=== PATIENT | male | born 1950 | race Caucasian/White ===

== ENCOUNTER 2019-03-30 14:26 | Emergency (ER) | payer MEDICARE, SELFPAY ==
[2019-03-30 14:28] VITALS: BP 141/100; PULSE 72; RESP 16; TEMP 37; O2SAT 97; BMI 23.3
--- NOTE | 2019-03-30 14:55 | CT_ITS ---
STUDY: CT ABDOMEN AND PELVIS WITHOUT CONTRAST REASON FOR EXAM: Male, 68 years old. Right lower quadrant pain with nausea and vomiting RADIATION DOSAGE (If Supplied By Facility): CTDIvol = ( 7.96 ) mGy, DLP = ( 361.84 ) mGycm TECHNIQUE: Transaxial images were obtained from the dome of the diaphragm to the symphysis pubis without oral contrast, and without intravenous contrast. Sagittal and coronal images were reconstructed. Individualized dose optimization techniques were used for this CT. COMPARISON: None. FINDINGS: The visualized lung bases are unremarkable. The visualized portions of the heart are within normal limits. Normal liver. Normal gallbladder and extrahepatic biliary system. Normal spleen. Normal pancreas. Normal bilateral adrenal glands. Normal right kidney. Normal left kidney. Normal visualized stomach. Normal small intestine. There is mild fecal retention of the right colon. No colon wall thickening. There are surgical clips in the region of the appendix consistent with a prior appendectomy. Aortobiiliac stent graft is identified with aneurysmal enlargement of the abdominal aorta measuring up to 3.7 cm. No periaortic fluid. Vascular calcifications are present. Normal inferior vena cava. Normal retroperitoneum. Normal urinary bladder. There is enlargement of the prostate gland. Normal abdominal wall. There are diffuse degenerative changes of the visualized lumbar spine. Grade 1 spondylolisthesis of L5-S1 due to bilateral L5 spondylolysis. CT/Abdomen/Pelvis without Cont IMPRESSION: 1. No hydronephrosis or urinary tract calcifications. 2. Abdominal aortic aneurysm with stent graft. No periaortic fluid. 3. Mild fecal retention in the right colon. 4. Appendectomy. Electronically Signed: Gil Manning MD ([facility]) at 15:59 EDT , Service support ,
[2019-03-30 15:09] LABS: Absolute Lymphocyte Count 2.27 X10^3/uL (0.83-4.51); Absolute Neutrophil Count 5.4 X10^3/uL (2.0-7.7); Basophil# 0.09 X10^3/uL; Eosinophils% 2.3 % (0-5); Hematocrit 43.3 % (40-54); Hemoglobin 14.9 g/dL (13.0-16.5); Lymphocyte # 2.27 X10^3/ul (4.0); Lymphocyte % 26.2 % (19-41); Mean Corp Hgb Conc 34.4 g/dL (32-36); Mean Corpuscular Hgb 31.8 pg (27.0-32.0); Mean Corpuscular Volume 92.3 fL (80-94); Mean Platelet Vol. 10.3 fl (6.2-12.0); Monocyte# 0.67 X10^3/uL; Monocyte% 7.7 % (0-10); NRBC Flagged by Analyzer 0 % (0-5); Neutrophil # 5.42 X10^3/uL (2.7-7.7); Neutrophil % 62.6 % (47-70); Platelet Count 242 K/mm3 (150-450); RBC Distribution Width CV 13.1 % (11.6-14.6); RBC Distribution Width SD 43.9 fl (35.1-43.9); Red Blood Count 4.69 M/mm3 (4.6-6.2); White Blood Count 8.7 K/mm3 (4.4-11.0)
--- NOTE | 2019-03-30 15:17 | ED.VIS.GI ---
History of Present Illness Informant: Patient, Significant Other - Abdominal Pain/Flank Pain Onset: Today Context: Gradual Onset Timing: Intermittent Quality: Cramping, Sharp Location: RLQ Current Severity: Mild Maximum Severity: Severe Worsened by: Nothing Relieved by: Nothing - Nausea/Vomiting/Emesis GI Symptom: Nausea, Vomiting Onset: Today Quality: Nonbilious Severity: Severe Episodes: 2 - Diarrhea/Melena/Hematochezia GI Symptom: Diarrhea. Negative for: Melena, Hematochezia Associated Symptoms: Negative for: Dysuria, Frequency, Hematuria, Urgency Narrative: 68-year-old male with right-sided mostly right lower quadrant abdominal pain. He has had 3-4 episodes of sharp stabbing intermittent pain that last with 10 minutes at a time and then resolved, the last 2 with vomiting. He denies any having difficulty urinating. No chest pain. No shortness of breath. No back pain. No lightheadedness or dizziness. No numbness or tingling or weakness of the lower extremities. no melena or hematochezia. No history of kidney stone. He does history of a repaired AAA 7. He is not on anticoagulation. Prior similar symptoms: No Recent Illness/Hospitalization: No <Aston Renteria - Last Filed: 03/30/19 16:43> <MattFerny - Last Filed: 04/02/19 08:00> Chief Complaint: Abd Pain Past Medical History Prior records reviewed: Yes Past Medical History: - - HTN Surgical History: appendectomy, - - AAA repair Lives: With Family Smoking Status: Current every day smoker <Aston Renteria - Last Filed: 03/30/19 16:43> <MattFerny - Last Filed: 04/02/19 08:00> - Allergies and Home Meds Allergies/Adverse Reactions: Allergies venom-honey bee [bee venom (honey bee)] Allergy (Verified 03/30/19 14:31) Anaphylaxis Primary Care Physician: Kavin Alaniz [Primary Care Provider] - Review of Systems All systems negative except as indicated Gastrointestinal: Reports: Abdominal pain, Nausea, Vomiting, Diarrhea <Aston Renteria - Last Filed: 03/30/19 16:43> General: Denies: Chills, Fever, Subjective Eyes: Denies: Visual changes - bilaterally, Blurred Vision - bilaterally ENT: Denies: Right ear pain, Rhinorrhea Cardiovascular: Denies: Chest pain, Palpitations Respiratory: Denies: Dyspnea, Cough, Dyspnea on exertion Genitourinary: Denies: Dysuria, Hematuria, Frequency Musculoskeletal: Denies: Myalgias, Arthralgias, Neck pain, Back pain, Swelling, Extremity Pain Skin: Denies: Rash, Wounds Neurological: Denies: Weakness, Parasthesia Endocrine: Denies: Polyuria, Polydipsia Allergy: Denies: Uticaria, Swelling of the mouth, Swelling of the tongue <MattFerny - Last Filed: 04/02/19 08:00> Physical Exam Vital Signs/Narrative: Vital Signs Temp Pulse Resp BP Pulse Ox 03/30/19 14:28 98.6 F 72 16 141/100 H 97 Inital Vital Signs reviewed: Yes General: Well nourished, Well developed Head: Normocephalic, Atraumatic Eyes: Perrl, EOMI ENT: Moist mucous membranes Neck: Supple, Nontender Cardiovascular: Regular rate, Regular rhythm, No murmurs Respiratory: No distress, CTA bilaterally, Chest nontender Abdomen: Soft, Nontender, Nondistended, Normal bowel sounds, No masses Back: Nontender, Normal Inspection Extremities: Nontender, No edema Skin: Normal color, No rash Neurological: Alert, Oriented x3 <Aston Renteria - Last Filed: 03/30/19 16:43> Skin: No Trauma. Negative for: Cyanosis, Diaphoresis, Jaundice Neurological: Negative for: Cranial nerves II-XII grossly intact, Normal Strength, Normal Sensation, Normal DTR Psychological: Negative for: Normal affect, Normal Mood <Tita Gutierrezo - Last Filed: 04/02/19 08:00> Diagnostic/Tx/Re-eval - Medical Decision Making Patient declined analgesia during the paramedics. Laboratory work-up was unremarkable as was his urinalysis. CT scan showed no acute findings. Patient had no more episodes of pain or vomiting throughout his stay in the emergency department. Please he is tolerating by mouth. Repeat abdominal exam soft and nontender. Discussed with patient that he will be discharged and he was advised to follow-up with his primary care physician. Return precautions to the emergency department were reviewed. Is agreeable with our plan of care. <Aston Renteria - Last Filed: 03/30/19 16:43> - Medical Decision Making Patient presents with intermittent right lower quadrant abdominal pain. He denies flank pain. He denies dysuria, frequency, urgency or hematuria. He denies intolerance of food. He denies anorexia. He denies prior episode of intermittent colicky pain. Vital signs are noted. He appears slightly uncomfortable. HEENT exam is unremarkable her lungs are clear to auscultation. Heart is regular. Abdomen is soft with minimal tenderness at the right lower quadrant to deep palpation. There is no evidence of trauma. There is no CVA tenderness. There is no inguinal lymphadenopathy. Is no evidence of hernia. With intermittent pain one needs to consider ureterolithiasis, abdominal pain of unknown etiology, doubt appendicitis, doubt torsion. Work-up was unremarkable. Since CT of the abdomen was negative he was discharged home with appropriate home-going instructions. <Ferny Gutierrez - Last Filed: 04/02/19 08:00> ED Disposition <Aston Renteria - Last Filed: 03/30/19 16:43> <Ferny Gutierrez - Last Filed: 04/02/19 08:00> - Plan for ED Patient: Disposition: Home or Assisted Living Diagnosis: Flank pain Instructions: ABDOMINAL PAIN, Unkown Cause, (Male) Referrals: Kavin Alaniz [Primary Care Provider] -
[2019-03-30 15:20] LABS: Bacteria 0 SEEN /hpf (None Seen)
[2019-03-30 15:23] LABS: Anion Gap 5 (5-15); BUN 16 mg/dL (7-18); BUN/Creat Ratio 14.8 RATIO (10-20); Calcium,Total 8.5 mg/dL (8.5-10.1); Chloride 105 mmol/L (98-107); Creatinine, Serum 1.08 mg/dL (0.70-1.30); EST Glomerular Filtration Rate 72 mL/min (>60); Est Glom Filt Rate - Afr Amer 87 mL/min (>60); Estimated Creatinine Clearance 65.46 ml/min; Glucose 117 mg/dL (74-106); Sodium Level 138 mmol/L (136-145)
[2019-03-30 15:34] LABS: Color, Urine Yellow (Yellow); Glucose, Dipstick Normal (Normal); Ketone-Dipstick 5 mg/dl (Negative); Leukocyte Esterase-Dipstick 25 /ul (Negative); Nitrite-Dipstick Negative (Negative); Occult Blood-Urine 10 /ul (Negative); Protein-Dipstick 15 mg/dl (Negative); Specific Gravity, Urine 1.025 (1.002-1.030); Urine Bilirubin Dipstick Negative (Negative); Urine Clarity Sl. Cloudy (Clear); Urine Urobilinogen 1 mg/dl (Normal)
[2019-03-30 15:41] LABS: Mucous, Urine 2+ /hpf (<or=2+); Red Blood Cells-Urine 0-5 SEEN /hpf (0-5); Squamous Epithelial Cells - UA 0-5 SEEN /hpf (0-5); White Blood Cells 0-5 SEEN /hpf (0-5)
[2019-03-30 15:50] VITALS: BP 126/70; PULSE 58; RESP 16; TEMP 36.6; O2SAT 98
[2019-03-30 17:21] VITALS: BP 133/71; PULSE 54; RESP 16; O2SAT 99
== END 2019-03-30 17:22 | disposition home or self-care (01) ==
PROVIDERS: Emergency Provider Physician Assistant Medical; Family Provider Family Medicine; PCP Family Medicine
DX: R10.31 Right lower quadrant pain (principal); I71.4 Abdominal aortic aneurysm, without rupture; F17.200 Nicotine dependence, unspecified, uncomplicated
CPT/HCPCS: 74176; 80048; 81001; 85025; 99283; A4216

== ENCOUNTER 2019-06-20 09:14 | Emergency (ER) | payer MEDICARE, SELFPAY ==
[2019-06-20 09:14] VITALS: BP 144/75; PULSE 81; RESP 18; TEMP 36.4; O2SAT 95; BMI 23.0
--- NOTE | 2019-06-20 09:21 | ED.VIS.GEN ---
History of Present Illness Chief Complaint: Upper Extremity Injury Detail of Chief Complaint: Left wrist injury Informant: Patient Onset: Days - 3 days ago Current Severity: Mild Maximum Severity: Moderate Narrative: Patient presents with left wrist injury that occurred 3 days ago. He was running a log splitter with a hydraulic control. He states his left hand was running the control when it suddenly pushed forward and hit his wrist. He has had pain since that time but yesterday noted it started to swell as well. He is right-hand dominant. He denies any pain at the elbow or shoulder. He has been taking ibuprofen for pain. - Past Medical History (1) High cholesterol Status: Chronic (2) BPH (benign prostatic hyperplasia) Status: Chronic Past Medical History - Allergies and Home Meds Allergies/Adverse Reactions: Allergies venom-honey bee [bee venom (honey bee)] Allergy (Verified 06/20/19 09:40) Anaphylaxis Primary Care Physician: Kavin Alaniz [Primary Care Provider] - Prior records reviewed: Yes Surgical History: appendectomy, - - AAA repair Lives: Spouse/ Significant Other Smoking Status: Current every day smoker Review of Systems General: Denies: Chills, Fever Eyes: Denies: Visual changes - bilaterally ENT: Denies: Bilateral ear pain Cardiovascular: Denies: Chest pain Respiratory: Denies: Dyspnea, Cough Gastrointestinal: Denies: Abdominal pain Musculoskeletal: Reports: Swelling, Extremity Pain Skin: Denies: Rash Neurological: Denies: Parasthesia, Numbness Hematologic: Denies: Easy bruising Allergy: Denies: Uticaria Physical Exam Vital Signs/Narrative: Vital Signs Temp Pulse Resp BP Pulse Ox 06/20/19 09:14 97.6 F L 81 18 144/75 H 95 Inital Vital Signs reviewed: Yes General: Well nourished, Well developed ENT: Moist mucous membranes Neck: Supple Cardiovascular: Regular rate, Regular rhythm Respiratory: No distress Abdomen: Soft, Nontender Extremities: - - Tenderness over the dorsal aspect of the left wrist with mild edema. No significant erythema or warmth. He is able to make a fist. There is no tenderness of the elbow or shoulder. Full range of motion is noted. Neurological: Alert, Oriented x3, Normal Sensation Psychological: Normal affect Diagnostic/Tx/Re-eval Impressions Wrist X-Ray 06/20/19 09:45 IMPRESSION: Soft tissue swelling. Electronically Signed: Moshe Dee, at 10:06 EST , Service support , 06/20/19 09:45 Wrist min 3 Views [RAD] Stat - Medical Decision Making X-ray results are discussed with patient and at bedside. I believe he is likely developing tendinitis in his left wrist. He will be given a Velcro wrist splint and given a 4-day course of steroids. ED Disposition - Plan for ED Patient: Disposition: Home or Assisted Living Diagnosis: Tendinitis of left wrist Instructions: Wrist Sprain Prescriptions: Prednisone [Deltasone] 40 mg PO DAILY #8 tablet Referrals: Kavin Alaniz [Primary Care Provider] - 1 Week if not improving
--- NOTE | 2019-06-20 09:45 | RAD_ITS ---
STUDY: X-RAY - LEFT WRIST REASON FOR EXAM: Male, 68 years old. Pain following recent injury. TECHNIQUE: 3 view(s) of the wrist were obtained. COMPARISON: None. FINDINGS: Normal visualized distal radius and ulna. Normal radiocarpal articulation. Normal distal radioulnar articulation. Normal carpal bones. Normal carpal articulations. Normal carpometacarpal articulation of the thumb. Normal second through fifth carpometacarpal articulations. Normal visualized metacarpal bones. Soft tissue swelling. RAD/Wrist min 3 Views IMPRESSION: Soft tissue swelling. Electronically Signed: Moshe Dee, at 10:06 EST , Service support ,
[2019-06-20] MEDS: predniSONE 20 MG Tablet 40 MG PO (10:31)
[2019-06-20 10:40] VITALS: BP 138/79; PULSE 82; RESP 16; O2SAT 99
== END 2019-06-20 10:41 | disposition home or self-care (01) ==
PROVIDERS: Emergency Provider Emergency Medicine; Family Provider Family Medicine; PCP Family Medicine
DX: M77.9 Enthesopathy, unspecified (principal); E78.00 Pure hypercholesterolemia, unspecified; N40.0 Benign prostatic hyperplasia without lower urinary tract symptoms; Z79.899 Other long term (current) drug therapy; F17.200 Nicotine dependence, unspecified, uncomplicated
CPT/HCPCS: 73110; 99283

== ENCOUNTER 2024-03-20 09:51 | Emergency (ER) | payer MEDICARE, SELFPAY ==
[2024-03-20 09:52] VITALS: BP 136/80; PULSE 64; RESP 18; TEMP 35.8; O2SAT 97; BMI 25.8
--- NOTE | 2024-03-20 10:30 | RAD_ITS ---
INDICATION: atraumatic pain EXAMINATION/TECHNIQUE: X-RAY - XR Spine Lumbar 2 or 3 Views COMPARISON: No relevant prior comparison study available FINDINGS: VERTEBRAE: Preserved vertebral body height. No fracture. Grade 1 anterolisthesis of L5 over S1. Preservation of the normal lumbar lordosis. Mild dextroscoliosis. DISCS: Narrowing of L5-S1 disc space. Endplate spondylosis. Facet arthropathy of the lower lumbar spine. INCLUDED ABDOMEN: Endoluminal aortic stent graft extending to the common iliac arteries bilaterally. RAD/Lumbar Spine 2 or 3 Views IMPRESSION: Degenerative changes of the lumbar spine as described above. Electronically Signed: Dmitriy Garcia MD at 11:02 EDT ,
--- NOTE | 2024-03-20 11:08 | EDS_ITS ---
HPI History of Present Illness Chief Complaint: Back Informant: patient and spouse/S.O. Onset/Context/Timing Onset: Days Context: Gradual Onset Injury: bending and repetitive motion Timing: Continuous Quality: Dull and Aching Location: Lumbar Current Severity: Mild Maximum Severity: Moderate Worsened by: improves with Movement Relieved by: Remaining Still Associated Symptoms Associated Symptoms: Negative for Numbness, Tingling, Radiation to Right Leg, Radiation to Left Leg, Fever, Abdominal Pain, Dysuria, Unable to Ambulate, Unable to Transfer, Urinary Retention, Urinary Incontinence, Constipation or Fecal Incontinence Narrative Narrative: 73 year-old male history of AAA with stents. Was painting his porch and developed low back pain. No radiation to his legs. No bowel or bladder incontinence or retention. No numbness or weakness to his legs. No prior back history or surgery. No fall or trauma. No fever. Prior similar symptoms: No Recent Illness/Hospitalization: No [facility] Medical History History of poliomyelitis Hx of abdominal aortic aneurysm COPD (chronic obstructive pulmonary disease) Home Medications ?Medication ?Instructions ?Recorded ?Last Taken ?Type tamsulosin 0.4 mg capsule 0.4 mg PO DAILY 10/15/14 Unknown History epinephrine 0.3 mg/0.3 mL 0.3 mg (0.3 mL) IM X1 ##2 03/01/16 Unknown Rx injection, auto-injector simvastatin 10 mg tablet 10 mg PO QHS 03/30/19 Unknown History prednisone 20 mg tablet 40 mg (2 x 20 mg) PO DAILY #8 tabs 06/20/19 Unknown Rx Allergy/AdvReac Type Severity Reaction Status Date / Time venom-honey bee (bee venom Allergy Anaphylaxis Verified 03/20/24 09:52 (honey bee)) Surgical History Hx of shoulder surgery Hx of appendectomy Hx of abdominal surgery H/O endovascular stent graft for abdominal aortic aneurysm Social History Smoking Status: Heavy Smoker (>10/day) ROS ROS ED ROS Narrative Denies any recent weakness. Denies any recent illness. Denies any bowel or bladder incontinence. Review of Systems ROS Unobtainable: Denies due to encephalopathy Constitutional Constitutional ED: Denies chills or fever(s) Eyes Eyes: Denies blurry vision ENT ENT ED: Denies ear pain Cardiovascular Cardiovascular: Denies chest pain Respiratory/Chest Respiratory/Chest: Denies dyspnea Gastrointestinal Gastrointestinal: Denies abdominal pain Genitourinary Genitourinary ED: Denies dysuria or hematuria Musculoskeletal Musculoskeletal: Reports back pain; Denies arthralgias, myalgias or neck pain Integumentary Denies abscess or Abrasions Neurologic Neurologic: Denies headache(s) Psychiatric Psychiatric: Denies anxiety Endocrine Endocrinology: Denies cold intolerance Hematologic/Lymphatic Hematologic/Lymphatic: Denies easy bleeding or easy bruising Allergic/Immunologic Allergic/Immunologic ED: Denies mouth swelling, tongue swelling or urticaria EXAM Physical Exam Narrative Exam Narrative: Well-appearing 73-year-old male sitting upright in bed. Vital signs are stable and afebrile. H EENT exam unremarkable. Lungs clear. Heart regular rhythm no murmur rate about 65. Chest wall ribs nontender. Abdomen soft nontender. No pulsatile mass. Moving all 4 extremities. Neurovascularly intact. No cauda equina. Normal dorsi and plantarflexion of both lower extremities. Normal medial thigh sensation. No cauda equina. No saddle anesthesia. Able to lift either leg off the bed. No radiculopathy. Back no reproducible pain over the spine or paralumbar soft tissue. No signs of trauma. No redness or warmth. No bruising. Neurologically is awake alert answering questions following commands. Good motor strength and sensation in both upper and lower extremities. Const Vital Signs: 03/20/24 09:52 Temperature 96.5 F L Temperature Source Temporal Pulse Rate 64 Respiratory Rate 18 Blood Pressure 136/80 H Blood Pressure Mean 98 Pulse Ox 97 Oxygen Delivery Method Room Air Positive well nourished and well developed; Negative for obese, cachectic, contractures or unkempt General Appearance ED: well developed and NAD; Negative for unkempt, cachectic, contractures or pallor Nutritional Appearance: Negative for cachectic or obese HEENT Reports moist mucous membranes Negative for trauma or tenderness Eyes PERRL and EOMs intact bilaterally General Eye ED: Negative for pale conjunctiva or scleral icterus Neck no lymphadenopathy, supple and no JVD General: Negative for tenderness Thyroid: Negative for other Resp normal respiratory effort and clear to auscultation bilaterally Effort and Inspection: Negative for pain with movement Auscultation: Negative for rales, rhonchi, wheezes or diminished lung sounds Cardio regular rate, regular rhythm, S1 normal heart sound, S2 normal heart sound and no murmurs Rhythm: Negative for abnormal rhythm GI normal to inspection, nondistended, normoactive bowel sounds, soft to palpation, non-tender, non-distended and no masses Inspection: Negative for abdominal distention Palpation: Negative for tender, guarding or rebound tenderness present Back/Spine normal to inspection and no thoracic nor lumbar tenderness Back/Spine Narrative: Nontender back. Normal inspection. General Back: Negative for CVA tenderness Cervical Spine: Negative for cervical spine tenderness Thoracic Spine / Upper Back: Negative for paraspinal muscle tenderness Extremity normal to inspection General Extremety ED: Negative for edema or tenderness General Extremity: Negative for edema Neuro oriented x3 and no sensory deficits noted Sensorium / Orientation: Negative for alert, confused, lethargic or stuporous Motor Exam: strength 5/5 throughout; Negative for strength abnormal Psych mental status grossly normal Appearance: Negative for unkempt Attitude: No agitated Mood & Affect: Negative for depressed Skin no rashes or lesions noted and no wounds General Skin Exam: Negative for jaundice or pallor Lesions: No lesion noted Rashes: No rashes noted Trauma: Negative for abrasion or puncture Wounds: Negative for wounds noted MDM MDM MDM Narrative Medical decision making narrative: 73-year-old male low back pain while painting his warts. No fall injury or trauma. Normal exam. Normal strength and sensation. No cauda equina. Plain x-rays were obtained showed degenerative arthritis between L5 and S1. He currently does not need an MRI is good strength and sensation. I went over the x-ray results with he and his . Repeat exam at 11:05 AM was unchanged. He still has good strength and sensation. He will continue his Aleve at home and Tylenol. Follow-up with his doctor or online marketing specialist if not improving or worse. Return if he develops any radiculopathy or or bowel or bladder incontinence or retention. History & Record Review Discussion w/independent historian: Patient and Family Additional record(s) reviewed:: Prior inpatient record, Prior outpatient record and Prior ED visit Radiography Diagnostic Testing: Clinical Impression(s) from Imaging Studies Lumbar Spine X-Ray 03/20/24 10:30 IMPRESSION: Degenerative changes of the lumbar spine as described above. Electronically Signed: Dmitriy Garcia MD at 11:02 EDT , LS-spine x-ray, 3 views, interpreted by myself the radiologist shows degenerative joint disease between L5 and S1. No compression fractures. Good disc space and the other lumbar vertebrae. Discharge Plan Triage Chief Complaint: Back ED Provider: Gee Taylor Dx/Rx/DC Orders Clinical Impression: Back pain Instructions: ED Back Pain (Acute or Chronic) Prescriptions: No Action tamsulosin 0.4 MG capsule 0.4 mg PO DAILY epinephrine 0.3 MG syringe 0.3 mg IM X1 Qty: 2 0RF simvastatin 10 MG tablet 10 mg PO QHS prednisone 20 MG tablet 40 mg PO DAILY Qty: 8 0RF Rx Instructions: With food Primary Care Provider: Kavin Alaniz Referrals: Ryan Tejeda DO [Non-Staff] - 1 Week if not improving Connor Jim DO [Med Staff - Active Staff] - 10-14 Days if not better Kavin Alaniz DO [Primary Care Provider] - Activity Restrictions/Additional Instructions: You have degenerative arthritis in your lower back between L5 and S1. Ice to your back. Aleve for pain and inflammation. Tylenol for pain. Follow-up if not improving or getting worse. Print Language: Spanish Disposition Disposition: Home, Self Care
[2024-03-20 11:18] VITALS: BP 137/81; PULSE 55; RESP 18; TEMP 36.7; O2SAT 95
== END 2024-03-20 11:19 | disposition home or self-care (01) ==
PROVIDERS: Emergency Provider Emergency Medicine; PCP Family Medicine; Visit Provider Emergency Medicine
DX: M54.50 Low back pain, unspecified (principal); J44.9 Chronic obstructive pulmonary disease, unspecified; F17.200 Nicotine dependence, unspecified, uncomplicated
CPT/HCPCS: 72100; 99282

== ENCOUNTER → 2025-03-24 | Outpatient (CLI) | payer MEDICARE, SELFPAY ==
--- NOTE | 2025-03-24 14:07 | PCM.PR.HP ---
History of Present Illness General Arrival date:: 03/24/25 Arrival time:: 14:07 Date of Referral:: 03/12/25 Date of Evaluation: 03/24/25 Referring Physician: Dr. Bashir Escobedo Primary Diagnosis: emphysema, chronic bronchitis History of Present Pulmonary Event [facility] Breathless Scale: When is the patient short of breath? Y/N Grade: Description of Breathlessness: 0 I only get breathless with strenuous exercise. 1 I get short of breath when hurrying on level ground or walking up a slight hill. 2 On level ground, I walk slower than people of the same age because of breathless, or have to stop for breath when walking at my own pace. 3 I stop for breath after walking 100 yards or after a few minutes on level ground. 4 I am too breathless to leave the house or I am breathless when dressing. Respiratory Problems: Yes Chest Pain, Fatigue, Wheezing, Able to Speak in Full Sentences, Dyspnea with Activity and Cough with Secretions; No Retain Secretions, Limited Range of Motion, Dizziness, Ankle Swelling, Hoarseness, Anxiety, Panic, Dyspnea at Rest or Dyspnea Lying Down Flat Medications Home Medications tamsulosin 0.4 mg capsule 0.4 mg PO DAILY 10/15/14 epinephrine 0.3 mg/0.3 mL injection, auto-injector 0.3 mg (0.3 mL) IM X1 ##2 03/01/16 simvastatin 10 mg tablet 10 mg PO QHS 03/30/19 prednisone 20 mg tablet 40 mg (2 x 20 mg) PO DAILY #8 tabs 06/20/19 Allergies Allergies venom-honey bee (bee venom (honey bee)) Allergy (Verified 03/20/24 09:52) Anaphylaxis Secretions Thick:: Yes Amount/Day:: 1 TSP (or less) PM: Yes Sleep Disorder Evaluation Hx of Sleep Apnea: No Do you snore loudly (louder than talking or can be heard through closed doors)?: No Do you often feel tired/ fatigued/ sleepy during daytime?: No Has anyone observed you stop breathing during sleep?: No History of Hypertension (for STOP score): No STOP Results: Negative Medical Utilization Medical Devices Do you use a peak flow meter at home?: No Do you use a spacer device with your inhalers?: Yes Medical Utilization Number of hospital visits in the last year?: 0 Number of emergency room visits in the last year?: 0 Do you see your physician on a regular schedule?: Yes How often?: every 2 months Advanced Directives Advanced Directives Do you have a Healthcare Power of Phlebotomy Technician?: Yes Living Will: Yes Advance Directives Information Provided: Yes Advance Directives on File: No DNR Order?:: No Past Medical History Covid-19 Screening Physicial Symptoms Other Clinical Concerns Exposure Risk Pertinent Comorbidities 65 years or older:: Yes Has a chronic lung disease or moderate to severe asthma:: Yes Medical History Medical History History of poliomyelitis Hx of abdominal aortic aneurysm COPD (chronic obstructive pulmonary disease) Surgical History Surgical History Hx of shoulder surgery Hx of appendectomy Hx of abdominal surgery H/O endovascular stent graft for abdominal aortic aneurysm Social History Smoking History Smoking Status: Former smoker Years Smokin Packs Smoked per Day: 1 (stopped 5 months ago) Alcohol Use Alcohol Usage: No Substance Abuse Hx Substance Use: No Occupation Occupation (List type of work in comments):: Retired Functioning ADL/IADL Current Ability Current Ability: Independent: Self-Care (e.g.,grooming, dressing, & bathing), Independent: Ambulation, Independent: Transfer and Independent: Household tasks (e.g., light meal prep, laundry, shopping) Pt Functioning Prior to Problem Prior Functioning: Self-Care (e.g.,grooming, dressing, & bathing): Independent, Ambulation: Independent, Transfer: Independent and Household tasks (e.g., light meal prep, laundry, shopping): Independent Social Environment Status Marital Status: Current Living Arrangements Living Environment:: Spouse Children How many children do you have?: 6 Do any of your children live nearby?: No Safety Do you feel safe in your surroundings?: Yes Assistance Do you need any assistance at home?: no Review of Systems Review of Systems Review of Systems Respiratory: Reports Appetite, Normal and Fatigue; Denies Cough, Hemoptysis, Pleuritic Pain, SOB at Rest, SOB upon Exertion, Sputum production, Wheezing, Dizziness/Lightheadedness, PVD, Sexual changes or Sleep, Normal Pain Is Patient Pain Free?: Yes Risk Factor Assessment Chief Complaint Chief Complaint: emphysema, chronic bronchitis Vital Signs Pulse Rate: 67 Pulse Rhythm: Regular Pulse Ox: 95 Blood Pressure: 150/64 Obesity Height: 5 ft 10 in Weight:: 163 lb Weight in Pounds: 163.0 lbs Body Mass Index (BMI): 23.3 Nutritional Referral for Obesity: No Physical Activity Physical Inactivity: None Risk Stratification Risk Guidelines: Moderate Risk: Risk Factor for Smoking, Risk Factor for Diabetes, Risk Factor for Obesity, Risk Factor for Hypertension, Risk Factor for Sedentary Lifestyle and Risk Factor for Depression and Highest Risk: Risk Factor for Dyslipidemia For Smoking Smoking Risk Guidelines For Dyslipidemia Dyslipidemia Risk Guidelines For Diabetes Mellitus Diabetes Risk Guidelines For Obesity/Overweight Obesity/Overweight Risk Guidelines For Hypertension Hypertension Risk Guidelines For Sedentary Lifestyle Sedentary Lifestyle Risk Guidelines For Depression Depression Risk Guidelines Motivation Motivation to Participate On a scale of 1 to 10, how prepared are you to commit to attending program?: 9 What do you see as barriers to successfully being able to complete the program?: nothing Are there issues you are dealing with that will interfere with completing the program?: no Do you have a spouse or signficant other, family or friends who will help support you to complete the program?: yes Diagnostic Data Review 6 Minute Walk Test 6 Minute Walk Test: Walked 1070 ft at a speed of 2 mph and a MET level of 2.5 Pulmonary Function Test FEV1:: 50 FVC:: 101 FEV1/FVC%:: 50
--- NOTE | 2025-03-24 14:16 | PR.ITP_ITS ---
General Information2 General Information Admitting Diagnosis: emphysema Secondary Diagnosis: chronic bronchitis PFT FEV1:: 50 FVC:: 101 FEV1/FVC%:: 50 (Walked 1070 ft at a speed of 2 mph and a MET level of 2.5) Personal Learning Style/Barriers Personal Learning Style:: Audio/Visual Barriers to Learning: None Stage of change r/t lifestyle modifications: Contemplation Education/Goals [place] Patient Goals: Increase muscle strength: Initial Assessment, Experience less dyspnea: Initial Assessment, Improve energy level: Initial Assessment, Participate in home exercise: Initial Assessment, Improve the ability to cope with ADLs: Initial Assessment, Improve knowledge of lung disease: Initial Assessment and Improve my quality of life: Initial Assessment Exercise - Initial Assessment Visit Date of Eval: 03/24/25 (initial eval) Problem/Goals Problems: Deconditioning Goals:: Aerobic exercise 30-60 mins x 12 weeks [36 sessions] Functional Capacity Test Number of feet walked: 1,070 Lowest SPO2 %: 90 Physician Prescribed Exercise Modalities: Treadmill, Rower, Schwinn Airdyne AD-7, UrvewFit Stepper, Inside Secure Pro- II Ergometer and Inside Secure Lateral Client Application Support Engineer Frequency (days/week): 3 Duration (Minutes):: 30-45 Intensity: 60-80% of age predicted maximum heart rate reserve Current METSs:: 2.5 Target HR:: 110 (88-110) Resting Blood Pressure: 150/64 Plan Plan and Plan to Review:: Benefits of exercise, Core components of exercise, How to measure dyspnea level, How to monitor dyspnea level, Exercise intensity, Exercise safety guideline, Home exercise guidelines and Sophie: 3-4/11-13 Nutrition/Wt Mgmt - Initial Visit Date of Eval: 03/24/25 (initial eval ) Weight Management Admit Height:: 5 ft 10 in Admit Weight:: 163 lb Admit BMI:: 23.3 Intervention Referral to dietitian:: No (nutrition survey score of 1.) Will attend diet classes:: Yes Intervention/Plan: Instruct on ideal BMI & set weight loss goal w/patient, Assist pt to ID & incorporate diet changes for weight loss by S9, Refer to Structured Weight Loss program as appropriate, Encourage goal of using 250- 300dcal per session for weight loss and Other additional plan/interventions Plan Nutrition Plan: Yes: Review BMI or WC & identify target wt & strategies for wt control, Yes: Nutrition education class:, Yes: Medication education class [Prednisone]:, Yes: Weight control education class:, Yes: Education re: Need for ongoing weight monitoring, Yes: Food diary: and Yes: Physical activity log: Nutrition/Wt Mgmt - 30-Day Weight Management Height: 5 ft 10 in Weight:: 163 lb BMI: 23.3 Nutrition/Wt Mgmt - 60-Day Weight Management Height: 5 ft 10 in Weight:: 163 lb BMI: 23.3 Nutrition/Wt Mgmt - 90-Day Weight Management Height: 5 ft 10 in Weight:: 163 lb BMI: 23.3 Nutrition/Wt Mgmt - Final Weight Management Height: 5 ft 10 in Weight:: 163 lb BMI: 23.3 Psychosocial - Initial Assess Visit Date of Eval: 03/24/25 (initial eval ) Problems/Goals History of Emotional Disorders: None Psychosocial Goals: 1. Patient is free from overwhelming symtoms of depression (or anxiety, 2. Identifies personal stressors & states the strategies for managing, 3. Identifies activities to decrease isolation and/or symptoms of, 4. Improved psychosocial coping skills., 5. Verbalizes coping strategies., 6. Adequate treatment of depression. and 7. Improved Q.O.L. Psychosocial Test Tool Used:: PHQ-9 Questionnaire PHQ-9 Score: 6 Referred to MD for counseling:: No Referral to Behavioral Health PS - Interventions: Yes: Attend Stress Management Classes Intervention/Plan: See List Interventions/Plan:: Assess stressors,coping strategies & signs of derpression on admission, Instruct/assist pt to develop coping & personal stress Mgt strategies, Refer to Behavioral Health if appropriate, Refer to Physician if appropriate, Instruct patient to recognize signs & symptoms of depression and Instruct patient to recog Psychosocial - 30-Day Problems/Goals History of Emotional Disorders: None Psychosocial Goals: 1. Patient is free from overwhelming symtoms of depression (or anxiety, 2. Identifies personal stressors & states the strategies for managing, 3. Identifies activities to decrease isolation and/or symptoms of, 4. Improved psychosocial coping skills., 5. Verbalizes coping strategies., 6. Adequate treatment of depression. and 7. Improved Q.O.L. Psychosocial Test Tool Used:: PHQ-9 Questionnaire PHQ-9 Score: 6 Referred to MD for counseling:: No Referral to Behavioral Health PS - Interventions: Yes: Attend Stress Management Classes Plan Interventions/Plan:: Assess stressors,coping strategies & signs of derpression on admission, Instruct/assist pt to develop coping & personal stress Mgt strategies, Refer to Behavioral Health if appropriate, Refer to Physician if appropriate, Instruct patient to recognize signs & symptoms of depression and Instruct patient to recog Psychosocial - 60-Day Problems/Goals History of Emotional Disorders: None Psychosocial Goals: 1. Patient is free from overwhelming symtoms of depression (or anxiety, 2. Identifies personal stressors & states the strategies for managing, 3. Identifies activities to decrease isolation and/or symptoms of, 4. Improved psychosocial coping skills., 5. Verbalizes coping strategies., 6. Adequate treatment of depression. and 7. Improved Q.O.L. Psychosocial Test Tool Used:: PHQ-9 Questionnaire PHQ-9 Score: 6 Referred to MD for counseling:: No Referral to Behavioral Health PS - Interventions: Yes: Attend Stress Management Classes Plan Interventions/Plan:: Assess stressors,coping strategies & signs of derpression on admission, Instruct/assist pt to develop coping & personal stress Mgt strategies, Refer to Behavioral Health if appropriate, Refer to Physician if appropriate, Instruct patient to recognize signs & symptoms of depression and Instruct patient to recog Psychosocial - 90-Day Problems/Goals History of Emotional Disorders: None Psychosocial Goals: 1. Patient is free from overwhelming symtoms of depression (or anxiety, 2. Identifies personal stressors & states the strategies for managing, 3. Identifies activities to decrease isolation and/or symptoms of, 4. Improved psychosocial coping skills., 5. Verbalizes coping strategies., 6. Adequate treatment of depression. and 7. Improved Q.O.L. Psychosocial Test Tool Used:: PHQ-9 Questionnaire PHQ-9 Score: 6 Referred to MD for counseling:: No Referral to Behavioral Health PS - Interventions: Yes: Attend Stress Management Classes Plan Interventions/Plan:: Assess stressors,coping strategies & signs of derpression on admission, Instruct/assist pt to develop coping & personal stress Mgt st rategies, Refer to Behavioral Health if appropriate, Refer to Physician if appropriate, Instruct patient to recognize signs & symptoms of depression and Instruct patient to recog Psychosocial - Final Assess Problems/Goals History of Emotional Disorders: None Psychosocial Goals: 1. Patient is free from overwhelming symtoms of depression (or anxiety, 2. Identifies personal stressors & states the strategies for managing, 3. Identifies activities to decrease isolation and/or symptoms of, 4. Improved psychosocial coping skills., 5. Verbalizes coping strategies., 6. Adequate treatment of depression. and 7. Improved Q.O.L. Psychosocial Test Tool Used:: PHQ-9 Questionnaire PHQ-9 Score: 6 Referred to MD for counseling:: No Referral to Behavioral Health PS - Interventions: Yes: Attend Stress Management Classes Plan Interventions/Plan:: Assess stressors,coping strategies & signs of derpression on admission, Instruct/assist pt to develop coping & personal stress Mgt strategies, Refer to Behavioral Health if appropriate, Refer to Physician if appropriate, Instruct patient to recognize signs & symptoms of depression and Instruct patient to recog Oxygen & Oxygen Titration Init Visit Date of Eval: 03/24/25 (initial eval ) Initial Assessment Oxygen on Admission: None Patient Reports:: No cough Plans Plan: Recommend appropriate FiO2 to Pt/MD Reviewed prescribed medications:: Purpose, Schedule, Side effects and Importance of compliance Instruct correct technique/timing & care:: MDI, DPI and Return demo use of inhaler Bronchial Hygiene Plan: Controlled cough, CPT, Vibratory PEP device, VEST, Role of exercise in secretion clearance, NS Nasal spray, Hydration, Hand hygiene, Evaluate sputum, When to call MD, Signs/symptoms to report:, Influenza/Pneumovax vaccines and Cleaning of respiratory equipment Core Components - Initial Visit Date of Eval: 03/24/25 (initial eval ) Hypertension BP: 150/64 Citizen Of [place] [employer] Hypertension Guidelines Outcomes/Goals: Able to verbalize/achieve optimal blood pressure <130/80 and Incorporates diet changes & exercise for blood pressure control by DC Tobacco - Initial Assessment Tobacco Program Goals Stages of Change:: Maintenance (pt stopped smoking 5 months ago) Learning Barriers: Ready to Learn Tobacco Use: Non-smoker How long ago did you quit using tobacco products?: Less than 6 months ago How many cigarettes do you smoke per day?: 20 Years Smokin Do you use smokeless tobacco?: No Smoking Cessation Referral:: No Individual Education/Counseling:: No Education Schedule Given:: Yes Gave Education Materials For:: Tobacco Triggers, Pulmonary Disease, Risk Factors, Breathing Techniques, Medical Compliance, Pulmonary A&P, Exacerbation Signs & Symptoms and Stress & Relaxation Exacerbation Mgmt & Airway Clearance Patient Reports:: No cough Plan: Recommend appropriate FiO2 to Pt/MD Instruct correct technique/timing & care:: MDI, DPI and Return demo use of inhaler Bronchial Hygiene Plan: Controlled cough, CPT, Vibratory PEP device, VEST, Role of exercise in secretion clearance, NS Nasal spray, Hydration, Hand hygiene, Evaluate sputum, When to call MD, Signs/symptoms to report:, Influenza/Pneumovax vaccines and Cleaning of respiratory equipment Medication Interventions/plans: Instruct on medication effects & side effects, Review medication list w/patient every two weeks and Instruct importance of taking meds as ordered & assist problem solving Medication Goals: Adherence to prescribed medications and Correct technique/timing & care of MDI, DPI, nebulizer, and spacer. Medications: Yes: MDI, Yes: DPI and Yes: Spacer Reviewed prescribed medications:: Purpose, Schedule, Side effects and Importance of compliance Diabetes Diabetes:: No Referral to dietitian:: No (nutrition survey score of 1.) Will attend diet classes:: Yes Core Components - 30 DAYS Hypertension Resting Blood Pressure:: 150/64 Citizen Of [place] [employer] Hypertension Guidelines Outcomes/Goals: Able to verbalize/achieve optimal blood pressure <130/80 and Incorporates diet changes & exercise for blood pressure control by DC Tobacco - 30-Day Tobacco Program Goals Stages of Change:: Maintenance (pt stopped smoking 5 months ago) Tobacco Use: Non-smoker How many cigarettes do you smoke per day?: 20 Do you use smokeless tobacco?: No Smoking Cessation Referral:: No Education Schedule Given:: Yes Gave Education Materials For:: Tobacco Triggers, Pulmonary Disease, Risk Factors, Breathing Techniques, Medical Compliance, Pulmonary A&P, Exacerbation Signs & Symptoms and Stress & Relaxation Diabetes Diabetes:: No Core Components - 60 DAYS Hypertension Resting Blood Pressure:: 150/64 Citizen Of [place] [employer] Hypertension Guidelines Outcomes/Goals: Able to verbalize/achieve optimal blood pressure <130/80 and Incorporates diet changes & exercise for blood pressure control by DC Tobacco - 60-Day Tobacco Program Goals Stages of Change:: Maintenance (pt stopped smoking 5 months ago) Tobacco Use: Non-smoker How many cigarettes do you smoke per day?: 20 Do you use smokeless tobacco?: No Smoking Cessation Referral:: No Individual Education/Counseling:: No Education Schedule Given:: Yes Gave Education Materials For:: Tobacco Triggers, Pulmonary Disease, Risk Factors, Breathing Techniques, Medical Compliance, Pulmonary A&P, Exacerbation Signs & Symptoms and Stress & Relaxation Diabetes Diabetes:: No Core Components - 90 DAYS Hypertension Resting Blood Pressure:: 150/64 Citizen Of [place] [employer] Hypertension Guidelines Outcomes/Goals: Able to verbalize/achieve optimal blood pressure <130/80 and Incorporates diet changes & exercise for blood pressure control by [place] Tobacco - 90-Day Tobacco Program Goals Stages of Change:: Maintenance (pt stopped smoking 5 months ago) Tobacco Use: Non-smoker How many cigarettes do you smoke per day?: 20 Do you use smokeless tobacco?: No Smoking Cessation Referral:: No Individual Education/Counseling:: No Education Schedule Given:: Yes Gave Education Materials For:: Tobacco Triggers, Pulmonary Disease, Risk Factors, Breathing Techniques, Medical Compliance, Pulmonary A&P, Exacerbation Signs & Symptoms and Stress & Relaxation Diabetes Diabetes:: No Core Components - Final Hypertension Resting Blood Pressure:: 150/64 Citizen Of [place] [employer] Hypertension Guidelines Outcomes/Goals: Able to verbalize/achieve optimal blood pressure <130/80 and Incorporates diet changes & exercise for blood pressure control by [place] Tobacco - Final Tobacco Program Goals Stages of Change:: Maintenance (pt stopped smoking 5 months ago) Tobacco Use: Non-smoker How many cigarettes do you smoke per day?: 20 Do you use smokeless tobacco?: No Smoking Cessation Referral:: No Individual Education/Counseling:: No Education Schedule Given:: Yes Diabetes Diabetes:: No Patient Health Questionnaire PHQ-9 Screening Initial Assessment: 1. Little interest or pleasure in doing things: Not at all 2. Feeling down, depressed, or hopeless: Not at all 3. Trouble falling or staying asleep, or sleeping too much: Nearly every day 4. Feeling tired or having little energy: Several days 5. Poor appetite or overeating: Not at all 6. Feeling bad about yourself -- or that you are a failure or have let yourself or your family down: Not at all 7. Trouble concentrating on things, such as reading the newspaper or watching television: Several days 8. Moving or speaking so slowly that other people could have noticed. Or the opposite - being so fidgety or restless that you have been moving around a lot more than usual: Several days 9. Thoughts that you would be better off , or of hurting yourself in some way: Not at all How difficult have these problems made it for you to do your work, take care of things at home, or get along with other people?: Somewhat difficult Total Score: 6 Knowledge Questionaire (BCKQ) Information Information: [facility] COPD Knowledge Questionnaire (BCKQ) This questionnaire is designed to find out what you know about your lung problem. It should be completed without help form anyone else. This usually takes between 10 and 20 minutes. Your answers will help us to find out what information you need to help you to understand and manage your lung condition. Brenden the [place] which you think is the correct answer. Questions 1. In COPD: a. In COPD the word chronic means it is severe: True b. COPD can only be confirmed by breathing tests: True c. In COPD ther is usually gradual worsening over time: True d. In COPD oxygen levels in the blood are always low: False e. COPD is usually in people less than 40 years old: False 2. COPD: Immanuel than 80% of COPD cases are caused by cigarette smoking: Don't know b. COPD can be caused by occupational dust exposure: True c. Longstanding asthma can develop into COPD: Don't know d. COPD is commonly an inherited disease: False e. Women are less vunerable to the effects of cigarette than men: True 3. The following symptoms are Common in COPD: a. Swelling of the ankles is common in COPD:: False b. Fatigue [tiredness] is common in COPD: True c. Wheezing is common in COPD: True d. Crushing chest pain is common in COPD: False e. Rapid weight loss is common in COPD: False 4. Breathlessness in COPD: a. Severe breathlessness prevents travel by air: Don't know b. Breathlessness can be worsened by eating large meals: Don't know c. Breathlessness means that your oxygen levels are low: True d. Breathlessness is a normal response to exercise: True e. Breathlessness is primarily caused by a narrowing of the bronchial tubes: False 5. Phlegm (sputum): a. Coughing phlegm is a common symptom in COPD: True b. Clearing phlegm is more difficult if you get dehydrated: Don't know c. Bronchodilator inhalers can help clear phlegm: Don't know d. Phlegm causes harm if swallowed: False e. Clearing phlegm can be assisted by breathing exercises: True 6. Chest infections / exacerbations: a. Chest infections often cause coughing of blood: Don't know b. Chest infection phlegm usually becomes coloured (ylw/grn): True cExerbations (episodes of worsening) can occur in the absence of chest infection: Don't know d. Chest infections are always accompanied by a high temperature: Don't know e. Steroid tablets should be taken whenever there is an exacerbation: Don't know 7. Excercise in COPD: aWalking excercises better than breathing to improve fitness: Don't know b. Exercise should be avoided as it strains the lungs: False c. Exercise can help maintain your bone density: Don't know d. Exercise helps relieve depression: True e. Exercise should be stopped if it makes you breathless: Don't know 8. Smoking: a. Stopping smoking will reduce the risk of heart disease: True b. Stopping smoking will slow down further lung damage: True c. Stopping smoking is pointless as the damage is done: False d.Stopping smoking usually results in improved lung function: True eNicotine replacement therapy only available on prescription: False 9. Vaccination: a. A flu jab is recommended every year: True b. You can get flu from having a flu jab: False c. You can only have a flu jab if you are 65 or over: False d. A pneumonia jab protects against all forms of pneumonia: Don't know e.You can have a pneumonia jab and a flu job on the same day: Don't know 10. Inhaled bronchodilators: a. Bronchodilators act quickly (within 10 minutes): Don't know b. Both short & long acting bronchodilators can be taken on the same day: Don't know c. Spacers (volumatic,nebuhaler,serochamber)should be dried w/atowel after washing: Don't know d. A spacer device increases the medication to the lungs: Don't know e. Tremor may be a side effect of bronchodilators: Don't know 11. Antibiotic treatment in COPD: a. To be effective, the course should last at least 10 days: Don't know b. Excessive use of antibiotics can cause resistant bacteria (germs): Don't know c. Antibiotics will clear all chest infections: Don't know d. Antibiotic treatment is necessary for an exacerbation (worsening) however mild: True e. Seek advice if antibiotics cause severe diarrhoea: True 12. Steroid tablets given for COPD (eg Prednisolone): a. Steroid tablets help strengthen muscles: Don't know b. Steroid tablets should be avoided if there is a chest infection: Don't know c. The risk of long-term side effects due to steroids is less w/short courses then w/continous treatment: True dIndigestion is common side effect from using steroid tablet: Don't know e. Steroid tablets can increase your appetite: Don't know 13. Inhaled steroids (brown, red or orange): a. Inhaled steroids should be stopped if you are given steroid tablets: Don't know bSteroid inhalers can be used for rapid relief breathlessnes: Don't know c. Spacer devices reduce the risk of getting thrush in the mouth: Don't know d.Steroid inhaler should be taken before your bronchodilator: Don't know e. Inhaled steroids improve lung function in COPD: Don't know COPD Knowledge Test Total Score:: 26 COPD Assessment Test [CAT] Questions Never cough = 0, Cough all the time = 5: 2 No phlegm = 0, Chest full of phlegm = 5: 2 No chest tightness = 0, Chest very tight = 5: 1 No breathless w/exertion = 0, Very breathless w/exertion = 5: 4 No limitations w/activity = 0, Very limited w/activity = 5: 4 Confident leaving home = 0, Not at all confident = 5: 2 Sleep soundly = 0, Don't sleep soundly = 5: 4 Lots of energy = 0, No energy at all = 5: 3 Total CAT score:: 22 Self-Efficacy 6-Item Scale Initial Assessment: We would like to know how confident you are in doing certain activities. Please select your confidence level for: Fatigue Select Number: 5 Physical Discomfort or Pain Select Number: 5 Emotional Distress Select Number: 9 Other Symptoms or Health Problems Select Number: 4 Different Tasks and Activities Select Number: 4 Medication Select Number: 4 Total Score:: 5 Nutrition Survey Nutrition Survey Instructions Scoring Instructions Nutrition Survey Initial: Have you lost >10 lbs over the past 2 months without trying?: No Are you following a special diet at home for diabetes, low fat, or low salt?: No Are you interested in meeting with a dietitian for help understanding your diet?: No Do you eat less than 3 meals a day?: No Do you eat fatty meats (allan, sausage, ribs, etc), fried foods, desserts, large amounts of salad dressings, margarine, butter, or cheese most days?: No Do you have food allergies? [Enter types in comment field]: No Do you eat in restaurants more than 3 times a week?: No Do you season food with salt, seasoning salt, or garlic salt?: Yes Do you used canned, boxed, frozen meals, or soups, seasoning packets?: No Total Score:: 1
[2025-03-24 14:33] VITALS: BP 150/64; PULSE 67; O2SAT 95
[2025-03-24 15:17] VITALS: BP 150/64; BMI 23.3
[2025-03-24 15:18] VITALS: BMI 23.3
== END | disposition home or self-care (01) ==
PROVIDERS: PCP Family Medicine
DX: J41.8 Mixed simple and mucopurulent chronic bronchitis (principal); J43.9 Emphysema, unspecified

== ENCOUNTER 2025-04-04 13:00 | Outpatient (RCR) | payer MEDICARE, SELFPAY ==
[2025-03-24 15:17] VITALS: BMI 23.3
== END 2025-04-06 23:59 ==
LOC: PR 13:00
PROVIDERS: PCP Family Medicine
DX: J41.8 Mixed simple and mucopurulent chronic bronchitis (principal); J43.9 Emphysema, unspecified
CPT/HCPCS: 97150; 94626

== ENCOUNTER 2025-05-05 13:00 | Outpatient (RCR) | payer MEDICARE, SELFPAY ==
[2025-03-24 15:17] VITALS: BMI 23.3
--- NOTE | 2025-04-21 09:18 | PR.ITP_ITS ---
Exercise - Initial Assessment Visit Session Number:: 9 Physician Prescribed Exercise Modalities: Treadmill, [employer] Airdyne AD-7 and Sci[employer] Stepper Current METSs:: 3.5 Target HR:: 110 (88-110) Current RPD:: 2-3 Maximum Exercise HR:: 100 Resting Blood Pressure: 126/66 Maximum Exercise Blood Pressure: 162/82 Minimum SpO2 with exercise: 90 EKG Type: NSR to ST w/ rare PAC's Nutrition/Wt Mgmt - Initial Visit Session Number:: 9 Weight Management Admit Height:: 5 ft 10 in Admit Weight:: 165 lb 8 oz Admit BMI:: 23.7 Nutrition/Wt Mgmt - 30-Day Visit Date of Eval: 04/21/25 Session Number:: 9 Weight Management Height: 5 ft 10 in Weight:: 165 lb 8 oz BMI: 23.7 Weight Goals Progress:: Progressing (Pt is scheduled to attend nutrition class. Heart healthy low sodium diet encouraged.) Nutrition/Wt Mgmt - 60-Day Visit Session Number:: 9 Weight Management Height: 5 ft 10 in Weight:: 165 lb 8 oz BMI: 23.7 Nutrition/Wt Mgmt - 90-Day Visit Session Number:: 9 Weight Management Height: 5 ft 10 in Weight:: 165 lb 8 oz BMI: 23.7 Nutrition/Wt Mgmt - Final Visit Session Number:: 9 Weight Management Height: 5 ft 10 in Weight:: 165 lb 8 oz BMI: 23.7 Psychosocial - Initial Assess Visit Session Number:: 9 Problems/Goals History of Emotional Disorders: None Psychosocial Goals: 1. Patient is free from overwhelming symtoms of depression (or anxiety, 2. Identifies personal stressors & states the strategies for managing, 3. Identifies activities to decrease isolation and/or symptoms of, 4. Improved psychosocial coping skills., 5. Verbalizes coping strategies., 6. Adequate treatment of depression. and 7. Improved Q.O.L. Psychosocial Test Tool Used:: PHQ-9 Questionnaire PHQ-9 Score: 6 Referral to Behavioral Health PS - Interventions: Yes: Attend Stress Management Classes Intervention/Plan: See List Interventions/Plan:: Assess stressors,coping strategies & signs of derpression on admission, Instruct/assist pt to develop coping & personal stress Mgt strategies, Refer to Behavioral Health if appropriate, Refer to Physician if appropriate, Instruct patient to recognize signs & symptoms of depression and Instruct patient to recog Psychosocial - 30-Day Visit Date of Eval: 04/21/25 Session Number:: 9 Problems/Goals History of Emotional Disorders: None Psychosocial Goals: 1. Patient is free from overwhelming symtoms of depression (or anxiety, 2. Identifies personal stressors & states the strategies for managing, 3. Identifies activities to decrease isolation and/or symptoms of, 4. Improved psychosocial coping skills., 5. Verbalizes coping strategies., 6. Adequate treatment of depression. and 7. Improved Q.O.L. Psychosocial Test Tool Used:: PHQ-9 Questionnaire PHQ-9 Score: 6 Referral to Behavioral Health PS - Interventions: Yes: Attend Stress Management Classes Plan Interventions/Plan:: Assess stressors,coping strategies & signs of derpression on admission, Instruct/assist pt to develop coping & personal stress Mgt strategies, Refer to Behavioral Health if appropriate, Refer to Physician if appropriate, Instruct patient to recognize signs & symptoms of depression and Instruct patient to recog Psychosocial - 60-Day Visit Session Number:: 9 Problems/Goals History of Emotional Disorders: None Psychosocial Goals: 1. Patient is free from overwhelming symtoms of depression (or anxiety, 2. Identifies personal stressors & states the strategies for managing, 3. Identifies activities to decrease isolation and/or symptoms of, 4. Improved psychosocial coping skills., 5. Verbalizes coping strategies., 6. Adequate treatment of depression. and 7. Improved Q.O.L. Psychosocial Test Tool Used:: PHQ-9 Questionnaire PHQ-9 Score: 6 Referral to Behavioral Health PS - Interventions: Yes: Attend Stress Management Classes Plan Interventions/Plan:: Assess stressors,coping strategies & signs of derpression on admission, Instruct/assist pt to develop coping & personal stress Mgt strategies, Refer to Behavioral Health if appropriate, Refer to Physician if appropriate, Instruct patient to recognize signs & symptoms of depression and Instruct patient to recog Psychosocial - 90-Day Visit Session Number:: 9 Problems/Goals History of Emotional Disorders: None Psychosocial Goals: 1. Patient is free from overwhelming symtoms of depression (or anxiety, 2. Identifies personal stressors & states the strategies for managing, 3. Identifies activities to decrease isolation and/or symptoms of, 4. Improved psychosocial coping skills., 5. Verbalizes coping strategies., 6. Adequate treatment of depression. and 7. Improved Q.O.L. Psychosocial Test Tool Used:: PHQ-9 Questionnaire PHQ-9 Score: 6 Referral to Behavioral Health PS - Interventions: Yes: Attend Stress Management Classes Plan Interventions/Plan:: Assess stressors,coping strategies & signs of derpression on admission, Instruct/assist pt to develop coping & personal stress Mgt strategies, Refer to Behavioral Health if appropriate, Refer to Physician if appropriate, Instruct patient to recognize signs & symptoms of depression and Instruct patient to recog Psychosocial - Final Assess Visit Session Number:: 9 Problems/Goals History of Emotional Disorders: None Psychosocial Goals: 1. Patient is free from overwhelming symtoms of depression (or anxiety, 2. Identifies personal stressors & states the strategies for managing, 3. Identifies activities to decrease isolation and/or symptoms of, 4. Improved psychosocial coping skills., 5. Verbalizes coping strategies., 6. Adequate treatment of depression. and 7. Improved Q.O.L. Psychosocial Test Tool Used:: PHQ-9 Questionnaire PHQ-9 Score: 6 Referral to Behavioral Health PS - Interventions: Yes: Attend Stress Management Classes Plan Interventions/Plan:: Assess stressors,coping strategies & signs of derpression on admission, Instruct/assist pt to develop coping & personal stress Mgt strategies, Refer to Behavioral Health if appropriate, Refer to Physician if appropriate, Instruct patient to recognize signs & symptoms of depression and Instruct patient to recog Oxygen & Oxygen Titration Init Visit Session Number:: 9 Initial Assessment SpO2:: 90 Oxygen & Oxygen Titration 30D Visit Date of Eval: 04/21/25 Session Number:: 9 Reassessment SpO2:: 90 Oxygen & Oxygen Titration 60D Visit Date of Eval: 04/21/25 Session Number:: 9 Reassessment SpO2:: 90 Oxygen & Oxygen Titration 90D Visit Date of Eval: 04/21/25 Session Number:: 9 Reassessment SpO2:: 90 Oxygen & Oxygen Titration ARIANNA Visit Date of Eval: 04/21/25 Session Number:: 9 Reassessment SpO2:: 90 Core Components - Initial Visit Session Number:: 9 Hypertension BP: 126/66 [employer] [employer] Hypertension Guidelines Blood Pressure: 162/82 Outcomes/Goals: Able to verbalize/achieve optimal blood pressure <130/80 and Incorporates diet changes & exercise for blood pressure control by DC Tobacco - Initial Assessment Tobacco Program Goals Do you have family support?: Yes Tobacco Use: Non-smoker (Pt stopped 6 months ago) How many cigarettes do you smoke per day?: 20 Diabetes Diabetes:: No Core Components - 30 DAYS Visit Date of Eval: 04/21/25 Session Number:: 9 Hypertension Resting Blood Pressure:: 126/66 [employer] [employer] Hypertension Guidelines Peak Exercise Blood Pressure:: 162/82 Change in medication: No Outcomes/Goals: Able to verbalize/achieve optimal blood pressure <130/80 and Incorporates diet changes & exercise for blood pressure control by DC Interventions/plan: Instruct on optimal blood pressure, hypertension & medications and Instruct on effects of sodium, alcohol, stress, exercise &hypertension 30 day Reassessments:: Progressing Reassessment Notes & Comments:: Pt's BP's are within AHA normal limits on some days. Will continue to monitor and report to pt's physician if necessary. Tobacco - 30-Day Tobacco Program Goals Learning Barriers: Participates in education Do you have family support?: Yes Tobacco Use: Non-smoker (Pt stopped 6 months ago) How many cigarettes do you smoke per day?: 20 Exacerbation Mgmt & Airway Clearance Bronchial Hygiene Plan: Yes: Pt demonstrates correctly for effective cough, Yes: Pt demo correct for CPT, Yes: Pt demo correct for device and Yes: Pt demo correct for NS nasal spray Medication Medication list reviewed:: Yes Taking medications 100% of the time:: Met Medication reassessment: Yes: Pt demonstrates correct technique timing for MDI, Yes: Pt demonstrates correct technique timing for DPI, Yes: Pt demonstrates correct technique timing for NEB and Yes: Pt demonstrates correct technique timing for spacer Diabetes Diabetes:: No Core Components - 60 DAYS Visit Session Number:: 9 Hypertension Resting Blood Pressure:: 126/66 [employer] [employer] Hypertension Guidelines Peak Exercise Blood Pressure:: 162/82 Change in medication: No Outcomes/Goals: Able to verbalize/achieve optimal blood pressure <130/80 and Incorporates diet changes & exercise for blood pressure control by DC Interventions/plan: Instruct on optimal blood pressure, hypertension & medications and Instruct on effects of sodium, alcohol, stress, exercise &hypertension 60 day Reassessments:: Progressing Reassessment Notes & Comments:: Pt's BP's are within AHA normal limits on some days. Will continue to monitor and report to pt's physician if necessary. Tobacco - 60-Day Tobacco Program Goals Learning Barriers: Participates in education Do you have family support?: Yes Tobacco Use: Non-smoker (Pt stopped 6 months ago) How many cigarettes do you smoke per day?: 20 Exacerbation Mgmt & Airway Clearance Bronchial Hygiene Plan: Yes: Pt demonstrates correctly for effective cough, Yes: Pt demo correct for CPT, Yes: Pt demo correct for device and Yes: Pt demo correct for NS nasal spray Medication Taking medications 100% of the time:: Met Medication reassessment: Yes: Pt demonstrates correct technique timing for MDI, Yes: Pt demonstrates correct technique timing for DPI, Yes: Pt demonstrates correct technique timing for NEB and Yes: Pt demonstrates correct technique timing for spacer Diabetes Diabetes:: No Core Components - 90 DAYS Visit Session Number:: 9 Hypertension Resting Blood Pressure:: 126/66 [employer] [employer] Hypertension Guidelines Peak Exercise Blood Pressure:: 162/82 Outcomes/Goals: Able to verbalize/achieve optimal blood pressure <130/80 and Incorporates diet changes & exercise for blood pressure control by DC Interventions/plan: Instruct on optimal blood pressure, hypertension & medications and Instruct on effects of sodium, alcohol, stress, exercise &hypertension 90 day Reassessments:: Progressing Reassessment Notes & Comments:: Pt's BP's are within AHA normal limits on some days. Will continue to monitor and report to pt's physician if necessary. Tobacco - 90-Day Tobacco Program Goals Learning Barriers: Participates in education Do you have family support?: Yes Tobacco Use: Non-smoker (Pt stopped 6 months ago) How many cigarettes do you smoke per day?: 20 Exacerbation Mgmt & Airway Clearance Bronchial Hygiene Plan: Yes: Pt demonstrates correctly for effective cough, Yes: Pt demo correct for CPT, Yes: Pt demo correct for device and Yes: Pt demo correct for NS nasal spray Medication Medication reassessment: Yes: Pt demonstrates correct technique timing for MDI, Yes: Pt demonstrates correct technique timing for DPI, Yes: Pt demonstrates correct technique timing for NEB and Yes: Pt demonstrates correct technique timing for spacer Diabetes Diabetes:: No Core Components - Final Visit Session Number:: 9 Hypertension Resting Blood Pressure:: 126/66 [employer] [employer] Hypertension Guidelines Peak Exercise Blood Pressure:: 162/82 Outcomes/Goals: Able to verbalize/achieve optimal blood pressure <130/80 and Incorporates diet changes & exercise for blood pressure control by DC Tobacco - Final Tobacco Program Goals Learning Barriers: Participates in education Do you have family support?: Yes Tobacco Use: Non-smoker (Pt stopped 6 months ago) How many cigarettes do you smoke per day?: 20 Exacerbation Mgmt & Airway Clearance Bronchial Hygiene Plan: Yes: Pt demonstrates correctly for effective cough, Yes: Pt demo correct for CPT, Yes: Pt demo correct for device and Yes: Pt demo correct for NS nasal spray Medication Medication reassessment: Yes: Pt demonstrates correct technique timing for MDI, Yes: Pt demonstrates correct technique timing for DPI, Yes: Pt demonstrates correct technique timing for NEB and Yes: Pt demonstrates correct technique timing for spacer Diabetes Diabetes:: No Patient Health Questionnaire PHQ-9 Screening 30-Day Re-eval Assessment: 1. Little interest or pleasure in doing things: Not at all 2. Feeling down, depressed, or hopeless: Not at all 3. Trouble falling or staying asleep, or sleeping too much: Nearly every day 4. Feeling tired or having little energy: Several days 5. Poor appetite or overeating: Not at all 6. Feeling bad about yourself -- or that you are a failure or have let yourself or your family down: Not at all 7. Trouble concentrating on things, such as reading the newspaper or watching television: Several days 8. Moving or speaking so slowly that other people could have noticed. Or the opposite - being so fidgety or restless that you have been moving around a lot more than usual: Several days 9. Thoughts that you would be better off , or of hurting yourself in some way: Not at all How difficult have these problems made it for you to do your work, take care of things at home, or get along with other people?: Somewhat difficult Total Score: 6 Knowledge Questionaire (BCKQ) Information Information: [place] COPD Knowledge Questionnaire (BCKQ) This questionnaire is designed to find out what you know about your lung problem. It should be completed without help form anyone else. This usually takes between 10 and 20 minutes. Your answers will help us to find out what information you need to help you to understand and manage your lung condition. [place] which you think is the correct answer. Self-Efficacy 6-Item Scale 30-Day Re-eval Assessment: We would like to know how confident you are in doing certain activities. Please select your confidence level for: Fatigue Select Number: 5 Physical Discomfort or Pain Select Number: 5 Emotional Distress Select Number: 9 Other Symptoms or Health Problems Select Number: 4 Different Tasks and Activities Select Number: 4 Medication Select Number: 4 Total Score:: 5
[2025-04-21 09:33] VITALS: BP 126/66; BP 162/82; O2SAT 90; BMI 23.7
== END 2025-05-06 23:59 ==
LOC: PR 13:00
PROVIDERS: PCP Family Medicine
DX: J43.9 Emphysema, unspecified (principal); J41.8 Mixed simple and mucopurulent chronic bronchitis
CPT/HCPCS: 97150; 94626

== ENCOUNTER 2025-06-06 13:00 | Outpatient (RCR) | payer MEDICARE, SELFPAY ==
[2025-04-21 09:33] VITALS: BMI 23.7
--- NOTE | 2025-05-19 08:08 | PR.ITP_ITS ---
Exercise - Initial Assessment Visit Session Number:: 18 Physician Prescribed Exercise Modalities: Treadmill, [employer] Airdyne AD-7 and [employer] Stepper Target HR:: 110 Target RPE 12-16:: 12-16 Current RPD:: 11 Resting Blood Pressure: 150/70 Maximum Exercise Blood Pressure: 164/70 Minimum SpO2 with exercise: 92 EKG Type: NSR to ST with rare ectopy Nutrition/Wt Mgmt - Initial Visit Session Number:: 18 Weight Management Admit Height:: 5 ft 10 in Admit Weight:: 168 lb Admit BMI:: 24.0 Nutrition/Wt Mgmt - 30-Day Visit Date of Eval: 05/19/25 Session Number:: 18 Weight Management Height: 5 ft 10 in Weight:: 168 lb BMI: 24.0 Nutrition/Wt Mgmt - 60-Day Visit Date of Eval: 05/19/25 (nutrition survey score 1 ) Session Number:: 18 Weight Management Weight Assessment:: BMI 21 to 25 Height: 5 ft 10 in Weight:: 168 lb BMI: 24.0 Weight Goals Progress:: Goal met Nutrition/Wt Mgmt - 90-Day Visit Session Number:: 18 Weight Management Weight Assessment:: BMI 21 to 25 Height: 5 ft 10 in Weight:: 168 lb BMI: 24.0 Weight Goals Progress:: Goal met Nutrition/Wt Mgmt - Final Visit Session Number:: 18 Weight Management Height: 5 ft 10 in Weight:: 168 lb BMI: 24.0 Psychosocial - Initial Assess Visit Session Number:: 18 Problems/Goals History of Emotional Disorders: None Psychosocial Goals: 1. Patient is free from overwhelming symtoms of depression (or anxiety, 2. Identifies personal stressors & states the strategies for managing, 3. Identifies activities to decrease isolation and/or symptoms of, 4. Improved psychosocial coping skills., 5. Verbalizes coping strategies., 6. Adequate treatment of depression. and 7. Improved Q.O.L. Psychosocial Test Tool Used:: PHQ-9 Questionnaire PHQ-9 Score: 6 Referral to Behavioral Health PS - Interventions: Yes: Attend Stress Management Classes Intervention/Plan: See List Interventions/Plan:: Assess stressors,coping strategies & signs of derpression on admission, Instruct/assist pt to develop coping & personal stress Mgt strategies, Refer to Behavioral Health if appropriate, Refer to Physician if appropriate and Instruct patient to recognize signs & symptoms of depression Psychosocial - 30-Day Visit Date of Eval: 05/19/25 Session Number:: 18 Problems/Goals History of Emotional Disorders: None Psychosocial Goals: 1. Patient is free from overwhelming symtoms of depression (or anxiety, 2. Identifies personal stressors & states the strategies for managing, 3. Identifies activities to decrease isolation and/or symptoms of, 4. Improved psychosocial coping skills., 5. Verbalizes coping strategies., 6. Adequate treatment of depression. and 7. Improved Q.O.L. Psychosocial Test Tool Used:: PHQ-9 Questionnaire PHQ-9 Score: 6 Referral to Behavioral Health PS - Interventions: Yes: Attend Stress Management Classes Plan Interventions/Plan:: Assess stressors,coping strategies & signs of derpression on admission, Instruct/assist pt to develop coping & personal stress Mgt strategies, Refer to Behavioral Health if appropriate, Refer to Physician if appropriate and Instruct patient to recognize signs & symptoms of depression Psychosocial - 60-Day Visit Date of Eval: 05/19/25 (nutrition survey score 1 ) Session Number:: 18 Problems/Goals History of Emotional Disorders: None Psychosocial Goals: 1. Patient is free from overwhelming symtoms of depression (or anxiety, 2. Identifies personal stressors & states the strategies for managing, 3. Identifies activities to decrease isolation and/or symptoms of, 4. Improved psychosocial coping skills., 5. Verbalizes coping strategies., 6. Adequate treatment of depression. and 7. Improved Q.O.L. Psychosocial Test Tool Used:: PHQ-9 Questionnaire PHQ-9 Score: 6 Referral to Behavioral Health PS - Interventions: Yes: Attend Stress Management Classes Plan Interventions/Plan:: Assess stressors,coping strategies & signs of derpression on admission, Instruct/assist pt to develop coping & personal stress Mgt strategies, Refer to Behavioral Health if appropriate, Refer to Physician if appropriate and Instruct patient to recognize signs & symptoms of depression Psychosocial - 90-Day Visit Session Number:: 18 Problems/Goals History of Emotional Disorders: None Psychosocial Goals: 1. Patient is free from overwhelming symtoms of depression (or anxiety, 2. Identifies personal stressors & states the strategies for managing, 3. Identifies activities to decrease isolation and/or symptoms of, 4. Improved psychosocial coping skills., 5. Verbalizes coping strategies., 6. Adequate treatment of depression. and 7. Improved Q.O.L. Psychosocial Test Tool Used:: PHQ-9 Questionnaire PHQ-9 Score: 6 Referral to Behavioral Health PS - Interventions: Yes: Attend Stress Management Classes Plan Interventions/Plan:: Assess stressors,coping strategies & signs of derpression on admission, Instruct/assist pt to develop coping & personal stress Mgt strategies, Refer to Behavioral Health if appropriate, Refer to Physician if appropriate and Instruct patient to recognize signs & symptoms of depression Psychosocial - Final Assess Visit Session Number:: 18 Problems/Goals History of Emotional Disorders: None Psychosocial Goals: 1. Patient is free from overwhelming symtoms of depression (or anxiety, 2. Identifies personal stressors & states the strategies for m anaging, 3. Identifies activities to decrease isolation and/or symptoms of, 4. Improved psychosocial coping skills., 5. Verbalizes coping strategies., 6. Adequate treatment of depression. and 7. Improved Q.O.L. Psychosocial Test Tool Used:: PHQ-9 Questionnaire PHQ-9 Score: 6 Referral to Behavioral Health PS - Interventions: Yes: Attend Stress Management Classes Plan Interventions/Plan:: Assess stressors,coping strategies & signs of derpression on admission, Instruct/assist pt to develop coping & personal stress Mgt strategies, Refer to Behavioral Health if appropriate, Refer to Physician if appropriate and Instruct patient to recognize signs & symptoms of depression Oxygen & Oxygen Titration Init Visit Session Number:: 18 Initial Assessment SpO2:: 92 Oxygen & Oxygen Titration 30D Visit Date of Eval: 05/19/25 Session Number:: 18 Reassessment SpO2:: 92 Oxygen & Oxygen Titration 60D Visit Date of Eval: 05/19/25 Session Number:: 18 Reassessment Reassessment- 60 Days: Demonstrate knowledge of O2 Rx at rest & w/exercise and Using O2 as Rx'd SpO2:: 92 Oxygen & Oxygen Titration 90D Visit Date of Eval: 05/19/25 Session Number:: 18 Reassessment SpO2:: 92 Oxygen & Oxygen Titration ARIANNA Visit Date of Eval: 05/19/25 Session Number:: 18 Reassessment SpO2:: 92 Core Components - Initial Visit Session Number:: 18 Hypertension Hypertension Diagnosis:: Hypertension ICD-10 I10 BP: 150/70 [place] [employer] Hypertension Guidelines Blood Pressure: 164/70 Outcomes/Goals: Able to verbalize/achieve optimal blood pressure <130/80 and Incorporates diet changes & exercise for blood pressure control by DC Tobacco - Initial Assessment Tobacco Program Goals Stages of Change:: Action Tobacco Use: Non-smoker (Pt quit smoking 6+months ago) Diabetes Diabetes:: No Core Components - 30 DAYS Visit Date of Eval: 05/19/25 Session Number:: 18 Hypertension Hypertension Diagnosis:: Hypertension ICD-10 I10 Resting Blood Pressure:: 150/70 [place] [employer] Hypertension Guidelines Peak Exercise Blood Pressure:: 164/70 Outcomes/Goals: Able to verbalize/achieve optimal blood pressure <130/80 and Incorporates diet changes & exercise for blood pressure control by DC Interventions/plan: Instruct on optimal blood pressure, hypertension & medicatio ns and Instruct on effects of sodium, alcohol, stress, exercise &hypertension 30 day Reassessments:: Progressing Tobacco - 30-Day Tobacco Program Goals Stages of Change:: Action Learning Barriers: Change in behavior Tobacco Use: Non-smoker (Pt quit smoking 6+months ago) 30-day Reassessments:: Met Exacerbation Mgmt & Airway Clearance Reassessment: Demonstrates knowledge of O2 Rx at rest and Demonstrates knowledge of O2 Rx with exercise Bronchial Hygiene Plan: Yes: Pt demonstrates correctly for effective cough, Yes: Pt demo correct for CPT, Yes: Pt demo correct for device, Yes: Pt demo correct for NS nasal spray, Yes: Pt demo correct for sputum management, Yes: Pt demo correct for improved hydration, Yes: Pt demo correct for hand hygiene, Yes: Pt demo correct for evalute sputum, Yes: Pt demo correct for verbalize when to call MD and Yes: Pt demo correct for cleaning of respiratory equipment Medication Medication reassessment: Yes: Pt demonstrates correct technique timing for MDI, Yes: Pt demonstrates correct technique timing for DPI, Yes: Pt demonstrates correct technique timing for NEB and Yes: Pt demonstrates correct technique timing for spacer Diabetes Diabetes:: No Core Components - 60 DAYS Visit Date of Eval: 05/19/25 (nutrition survey score 1 ) Session Number:: 18 Hypertension Hypertension Diagnosis:: Hypertension ICD-10 I10 Resting Blood Pressure:: 150/70 [place] [employer] Hypertension Guidelines Peak Exercise Blood Pressure:: 164/70 Outcomes/Goals: Able to verbalize/achieve optimal blood pressure <130/80 and Incorporates diet changes & exercise for blood pressure control by DC Interventions/plan: Instruct on optimal blood pressure, hypertension & medications and Instruct on effects of sodium, alcohol, stress, exercise &hypertension 60 day Reassessments:: Progressing Tobacco - 60-Day Tobacco Program Goals Stages of Change:: Action Learning Barriers: Change in behavior Tobacco Use: Non-smoker (Pt quit smoking 6+months ago) 60-day Reassessments:: Met Exacerbation Mgmt & Airway Clearance Reassessment: Demonstrates knowledge of O2 Rx at rest and Demonstrates knowledge of O2 Rx with exercise Bronchial Hygiene Plan: Yes: Pt demonstrates correctly for effective cough, Yes: Pt demo correct for CPT, Yes: Pt demo correct for device, Yes: Pt demo correct for NS nasal spray, Yes: Pt demo correct for sputum management, Yes: Pt demo correct for improved hydration, Yes: Pt demo correct for hand hygiene, Yes: Pt demo correct for evalute sputum, Yes: Pt demo correct for verbalize when to call MD and Yes: Pt demo correct for cleaning of respiratory equipment Medication Taking medications 100% of the time:: Met Medication reassessment: Yes: Pt demonstrates correct technique timing for MDI, Yes: Pt demonstrates correct technique timing for DPI, Yes: Pt demonstrates correct technique timing for NEB and Yes: Pt demonstrates correct technique timing for spacer 60-day Reassessments:: Met Diabetes Diabetes:: No Core Components - 90 DAYS Visit Session Number:: 18 Hypertension Hypertension Diagnosis:: Hypertension ICD-10 I10 Resting Blood Pressure:: 150/70 [place] [employer] Hypertension Guidelines Peak Exercise Blood Pressure:: 164/70 Outcomes/Goals: Able to verbalize/achieve optimal blood pressure <130/80 and Incorporates diet changes & exercise for blood pressure control by DC Interventions/plan: Instruct on optimal blood pressure, hypertension & medications and Instruct on effects of sodium, alcohol, stress, exercise &hypertension 90 day Reassessments:: Progressing Tobacco - 90-Day Tobacco Program Goals Stages of Change:: Action Learning Barriers: Change in behavior Tobacco Use: Non-smoker (Pt quit smoking 6+months ago) 90-day Reassessments:: Met Exacerbation Mgmt & Airway Clearance Bronchial Hygiene Plan: Yes: Pt demonstrates correctly for effective cough, Yes: Pt demo correct for CPT, Yes: Pt demo correct for device, Yes: Pt demo correct for NS nasal spray, Yes: Pt demo correct for sputum management, Yes: Pt demo correct for improved hydration, Yes: Pt demo correct for hand hygiene, Yes: Pt demo correct for evalute sputum, Yes: Pt demo correct for verbalize when to call MD and Yes: Pt demo correct for cleaning of respiratory equipment Medication Medication reassessment: Yes: Pt demonstrates correct technique timing for MDI, Yes: Pt demonstrates correct technique timing for DPI, Yes: Pt demonstrates correct technique timing for NEB and Yes: Pt demonstrates correct technique timing for spacer Diabetes Diabetes:: No Core Components - Final Visit Session Number:: 18 Hypertension Hypertension Diagnosis:: Hypertension ICD-10 I10 Resting Blood Pressure:: 150/70 [place] [employer] Hypertension Guidelines Peak Exercise Blood Pressure:: 164/70 Outcomes/Goals: Able to verbalize/achieve optimal blood pressure <130/80 and Incorporates diet changes & exercise for blood pressure control by DC Tobacco - Final Tobacco Program Goals Stages of Change:: Action Learning Barriers: Change in behavior Tobacco Use: Non-smoker (Pt quit smoking 6+months ago) Exacerbation Mgmt & Airway Clearance Bronchial Hygiene Plan: Yes: Pt demonstrates correctly for effective cough, Yes: Pt demo correct for CPT, Yes: Pt demo correct for device, Yes: Pt demo correct for NS nasal spray, Yes: Pt demo correct for sputum management, Yes: Pt demo correct for improved hydration, Yes: Pt demo correct for hand hygiene, Yes: Pt demo correct for evalute sputum, Yes: Pt demo correct for verbalize when to call MD and Yes: Pt demo correct for cleaning of respiratory equipment Medication Medication reassessment: Yes: Pt demonstrates correct technique timing for MDI, Yes: Pt demonstrates correct technique timing for DPI, Yes: Pt demonstrates correct technique timing for NEB and Yes: Pt demonstrates correct technique timing for spacer Diabetes Diabetes:: No Knowledge Questionaire (BCKQ) Information Information: [place] COPD Knowledge Questionnaire (BCKQ) This questionnaire is designed to find out what you know about your lung problem. It should be completed without help form anyone else. This usually takes between 10 and 20 minutes. Your answers will help us to find out what information you need to help you to understand and manage your lung condition. [place] which you think is the correct answer. Nutrition Survey Nutrition Survey Discharge: Have you lost >10 lbs over the past 2 months without trying?: No Are you following a special diet at home for diabetes, low fat, or low salt?: No Are you interested in meeting with a dietitian for help understanding your diet?: No Do you eat less than 3 meals a day?: No Do you eat fatty meats (allan, sausage, ribs, etc), fried foods, desserts, large amounts of salad dressings, margarine, butter, or cheese most days?: No Do you have food allergies? [Enter types in comment field]: No Do you eat in restaurants more than 3 times a week?: No Do you season food with salt, seasoning salt, or garlic salt?: Yes Do you used canned, boxed, frozen meals, or soups, seasoning packets?: No Total Score:: 1
[2025-05-19 08:18] VITALS: BP 150/70; BP 164/70; O2SAT 92; BMI 24.0
== END 2025-06-06 23:59 ==
LOC: PR 13:00
PROVIDERS: PCP Family Medicine
DX: J41.8 Mixed simple and mucopurulent chronic bronchitis (principal); J43.9 Emphysema, unspecified
CPT/HCPCS: 97150; 94626

== ENCOUNTER 2025-06-18 12:45 | Outpatient (RCR) | payer MEDICARE, SELFPAY ==
[2025-05-19 08:18] VITALS: BMI 24.0
--- NOTE | 2025-06-17 07:45 | PCM.PR.TP ---
Exercise - Initial Assessment Visit Session Number:: 27 Physician Prescribed Exercise Modalities: Treadmill, [employer] Airdyne AD-7 and [employer] Stepper Current METSs:: 3.5 Target HR:: 110 (88-110) Current RPD:: 2 Maximum Exercise HR:: 113 Resting Blood Pressure: 118/60 Maximum Exercise Blood Pressure: 164/72 Minimum SpO2 with exercise: 92 (room air) EKG Type: NSR to ST Nutrition/Wt Mgmt - Initial Visit Session Number:: 27 (Nutrition survey score of 1) Weight Management Admit Height:: 5 ft 10 in Admit Weight:: 165 lb Admit BMI:: 23.6 Nutrition/Wt Mgmt - 30-Day Visit Date of Eval: 06/17/25 Session Number:: 27 (Nutrition survey score of 1) Weight Management Height: 5 ft 10 in Weight:: 165 lb BMI: 23.6 Nutrition/Wt Mgmt - 60-Day Visit Session Number:: 27 (Nutrition survey score of 1) Weight Management Height: 5 ft 10 in Weight:: 165 lb BMI: 23.6 Weight Goals Progress:: Goal met (Pt is at a healthy weight. Pt has attended nutrition classes. Heart healthy low sodium diet encouraged. ) Nutrition/Wt Mgmt - 90-Day Visit Date of Eval: 06/17/25 Session Number:: 27 (Nutrition survey score of 1) Weight Management Height: 5 ft 10 in Weight:: 165 lb BMI: 23.6 Weight Goals Progress:: Goal met (Pt is at a healthy weight. Pt has attended nutrition classes. Heart healthy low sodium diet encouraged. ) Nutrition/Wt Mgmt - Final Visit Session Number:: 27 (Nutrition survey score of 1) Weight Management Height: 5 ft 10 in Weight:: 165 lb BMI: 23.6 Psychosocial - Initial Assess Visit Session Number:: 27 (Nutrition survey score of 1) Problems/Goals History of Emotional Disorders: None Psychosocial Goals: 1. Patient is free from overwhelming symtoms of depression (or anxiety, 2. Identifies personal stressors & states the strategies for managing, 3. Identifies activities to decrease isolation and/or symptoms of, 4. Improved psychosocial coping skills., 5. Verbalizes coping strategies., 6. Adequate treatment of depression. and 7. Improved Q.O.L. Psychosocial Test Tool Used:: Pulmonary QOL and PHQ-9 Questionnaire PHQ-9 Score: 6 Referral to Behavioral Health PS - Interventions: Yes: Attend Stress Management Classes Intervention/Plan: See List Interventions/Plan:: Assess stressors,coping strategies & signs of derpression on admission, Instruct/assist pt to develop coping & personal stress Mgt strategies, Refer to Behavioral Health if appropriate, Refer to Physician if appropriate, Instruct patient to recognize signs & symptoms of depression and Instruct patient to recog Comments:: Pt denies any psychosocial issues at this time. Psychosocial - 30-Day Visit Date of Eval: 06/17/25 Session Number:: 27 (Nutrition survey score of 1) Problems/Goals History of Emotional Disorders: None Psychosocial Goals: 1. Patient is free from overwhelming symtoms of depression (or anxiety, 2. Identifies personal stressors & states the strategies for managing, 3. Identifies activities to decrease isolation and/or symptoms of, 4. Improved psychosocial coping skills., 5. Verbalizes coping strategies., 6. Adequate treatment of depression. and 7. Improved Q.O.L. Psychosocial Test Tool Used:: Pulmonary QOL and PHQ-9 Questionnaire PHQ-9 Score: 6 Referral to Behavioral Health PS - Interventions: Yes: Attend Stress Management Classes Plan Interventions/Plan:: Assess stressors,coping strategies & signs of derpression on admission, Instruct/assist pt to develop coping & personal stress Mgt strategies, Refer to Behavioral Health if appropriate, Refer to Physician if appropriate, Instruct patient to recognize signs & symptoms of depression and Instruct patient to recog Comments:: Pt denies any psychosocial issues at this time. Psychosocial - 60-Day Visit Session Number:: 27 (Nutrition survey score of 1) Problems/Goals History of Emotional Disorders: None Psychosocial Goals: 1. Patient is free from overwhelming symtoms of depression (or anxiety, 2. Identifies personal stressors & states the strategies for managing, 3. Identifies activities to decrease isolation and/or symptoms of, 4. Improved psychosocial coping skills., 5. Verbalizes coping strategies., 6. Adequate treatment of depression. and 7. Improved Q.O.L. Psychosocial Test Tool Used:: Pulmonary QOL and PHQ-9 Questionnaire PHQ-9 Score: 6 Referral to Behavioral Health PS - Interventions: Yes: Attend Stress Management Classes Plan Interventions/Plan:: Assess stressors,coping strategies & signs of derpression on admission, Instruct/assist pt to develop coping & personal stress Mgt strategies, Refer to Behavioral Health if appropriate, Refer to Physician if appropriate, Instruct patient to recognize signs & symptoms of depression and Instruct patient to recog Comments:: Pt denies any psychosocial issues at this time. Psychosocial - 90-Day Visit Date of Eval: 06/17/25 Session Number:: 27 Problems/Goals History of Emotional Disorders: None Psychosocial Goals: 1. Patient is free from overwhelming symtoms of depression (or anxiety, 2. Identifies personal stressors & states the strategies for managing, 3. Identifies activities to decrease isolation and/or symptoms of, 4. Improved psychosocial coping skills., 5. Verbalizes coping strategies., 6. Adequate treatment of depression. and 7. Improved Q.O.L. Psychosocial Test Tool Used:: Pulmonary QOL and PHQ-9 Questionnaire PHQ-9 Score: 6 Referral to Behavioral Health PS - Interventions: Yes: Attend Stress Management Classes Plan Interventions/Plan:: Assess stressors,coping strategies & signs of derpression on admission, Instruct/assist pt to develop coping & personal stress Mgt strategies, Refer to Behavioral Health if appropriate, Refer to Physician if appropriate, Instruct patient to recognize signs & symptoms of depression and Instruct patient to recog Comments:: Pt denies any psychosocial issues at this time. Psychosocial - Final Assess Visit Session Number:: 27 Problems/Goals History of Emotional Disorders: None Psychosocial Goals: 1. Patient is free from overwhelming symtoms of depression (or anxiety, 2. Identifies personal stressors & states the strategies for managing, 3. Identifies activities to decrease isolation and/or symptoms of, 4. Improved psychosocial coping skills., 5. Verbalizes coping strategies., 6. Adequate treatment of depression. and 7. Improved Q.O.L. Psychosocial Test Tool Used:: Pulmonary QOL and PHQ-9 Questionnaire PHQ-9 Score: 6 Referral to Behavioral Health PS - Interventions: Yes: Attend Stress Management Classes Plan Interventions/Plan:: Assess stressors,coping strategies & signs of derpression on admission, Instruct/assist pt to develop coping & personal stress Mgt strategies, Refer to Behavioral Health if appropriate, Refer to Physician if appropriate, Instruct patient to recognize signs & symptoms of depression and Instruct patient to recog Comments:: Pt denies any psychosocial issues at this time. Oxygen & Oxygen Titration Init Visit Session Number:: 27 (Nutrition survey score of 1) Initial Assessment SpO2:: 92 (room air) Oxygen & Oxygen Titration 30D Visit Date of Eval: 06/17/25 Session Number:: 27 Reassessment SpO2:: 92 (room air) Oxygen & Oxygen Titration 60D Visit Date of Eval: 06/17/25 Session Number:: 27 Reassessment SpO2:: 92 (room air) Oxygen & Oxygen Titration 90D Visit Date of Eval: 06/17/25 Session Number:: 27 Reassessment Oxygen & Oxygen Titration 90 days: None SpO2:: 92 (room air) Oxygen & Oxygen Titration ARIANNA Visit Date of Eval: 06/17/25 Session Number:: 27 Reassessment SpO2:: 92 (room air) [employer] - Initial Visit Session Number:: 27 Hypertension Hypertension Diagnosis:: Hypertension ICD-10 I10 BP: 118/80 [employer] Hypertension Guidelines Blood Pressure: 164/72 Outcomes/Goals: Able to verbalize/achieve optimal blood pressure <130/80 and Incorporates diet changes & exercise for blood pressure control by DC Tobacco - Initial Assessment Tobacco Program Goals Do you have family support?: Yes Tobacco Use: Non-smoker Gave Education Materials For:: Tobacco Triggers, Pulmonary Disease, Risk Factors, Breathing Techniques, Medical Compliance, Pulmonary A&P, Exacerbation Signs & Symptoms and Stress & Relaxation Diabetes Diabetes:: No [employer] - 30 DAYS Visit Date of Eval: 06/17/25 Session Number:: 27 Hypertension Hypertension Diagnosis:: Hypertension ICD-10 I10 Resting Blood Pressure:: 118/80 [employer] Hypertension Guidelines Peak Exercise Blood Pressure:: 164/72 Outcomes/Goals: Able to verbalize/achieve optimal blood pressure <130/80 and Incorporates diet changes & exercise for blood pressure control by DC Interventions/plan: Instruct on optimal blood pressure, hypertension & medications and Instruct on effects of sodium, alcohol, stress, exercise &hypertension 30 day Reassessments:: Progressing Reassessment Notes & Comments:: Pt's BP's are within AHA normal limits on most days. Stress the importance of a low sodium diet. Tobacco - 30-Day Tobacco Program Goals Do you have family support?: Yes Tobacco Use: Non-smoker Gave Education Materials For:: Tobacco Triggers, Pulmonary Disease, Risk Factors, Breathing Techniques, Medical Compliance, Pulmonary A&P, Exacerbation Signs & Symptoms and Stress & Relaxation 30-day Reassessments:: Met Reassessment Notes & Comments:: Pt attends education. Exacerbation Mgmt & Airway Clearance Bronchial Hygiene Plan: Yes: Pt demonstrates correctly for effective cough, Yes: Pt demo correct for CPT, Yes: Pt demo correct for device, Yes: Pt demo correct for NS nasal spray, Yes: Pt demo correct for sputum management, Yes: Pt demo correct for improved hydration, Yes: Pt demo correct for hand hygiene, Yes: Pt demo correct for evalute sputum, Yes: Pt demo correct for verbalize when to call MD and Yes: Pt demo correct for cleaning of respiratory equipment Medication Medication reassessment: Yes: Pt demonstrates correct technique timing for MDI, Yes: Pt demonstrates correct technique timing for DPI, Yes: Pt demonstrates correct technique timing for NEB and Yes: Pt demonstrates correct technique timing for spacer Diabetes Diabetes:: No [employer] - 60 DAYS Visit Session Number:: 27 Hypertension Hypertension Diagnosis:: Hypertension ICD-10 I10 Resting Blood Pressure:: 118/80 [employer] Hypertension Guidelines Peak Exercise Blood Pressure:: 164/72 Outcomes/Goals: Able to verbalize/achieve optimal blood pressure <130/80 and Incorporates diet changes & exercise for blood pressure control by DC Interventions/plan: Instruct on optimal blood pressure, hypertension & medications and Instruct on effects of sodium, alcohol, stress, exercise &hypertension 60 day Reassessments:: Progressing Reassessment Notes & Comments:: Pt's BP's are within AHA normal limits on most days. Stress the importance of a low sodium diet. Tobacco - 60-Day Tobacco Program Goals Do you have family support?: Yes Tobacco Use: Non-smoker Gave Education Materials For:: Tobacco Triggers, Pulmonary Disease, Risk Factors, Breathing Techniques, Medical Compliance, Pulmonary A&P, Exacerbation Signs & Symptoms and Stress & Relaxation 60-day Reassessments:: Met Reassessment Notes & Comments:: Pt attends education. Exacerbation Mgmt & Airway Clearance Bronchial Hygiene Plan: Yes: Pt demonstrates correctly for effective cough, Yes: Pt demo correct for CPT, Yes: Pt demo correct for device, Yes: Pt demo correct for NS nasal spray, Yes: Pt demo correct for sputum management, Yes: Pt demo correct for improved hydration, Yes: Pt demo correct for hand hygiene, Yes: Pt demo correct for evalute sputum, Yes: Pt demo correct for verbalize when to call MD and Yes: Pt demo correct for cleaning of respiratory equipment Medication Medication reassessment: Yes: Pt demonstrates correct technique timing for MDI, Yes: Pt demonstrates correct technique timing for DPI, Yes: Pt demonstrates correct technique timing for NEB and Yes: Pt demonstrates correct technique timing for spacer Diabetes Diabetes:: No [employer] - 90 DAYS Visit Date of Eval: 06/17/25 Session Number:: 27 Hypertension Hypertension Diagnosis:: Hypertension ICD-10 I10 Resting Blood Pressure:: 118/80 [employer] Hypertension Guidelines Peak Exercise Blood Pressure:: 164/72 Outcomes/Goals: Able to verbalize/achieve optimal blood pressure <130/80 and Incorporates diet changes & exercise for blood pressure control by DC Interventions/plan: Instruct on optimal blood pressure, hypertension & medications and Instruct on effects of sodium, alcohol, stress, exercise &hypertension 90 day Reassessments:: Progressing Reassessment Notes & Comments:: Pt's BP's are within AHA normal limits on most days. Stress the importance of a low sodium diet. Tobacco - 90-Day Tobacco Program Goals Do you have family support?: Yes Tobacco Use: Non-smoker Gave Education Materials For:: Tobacco Triggers, Pulmonary Disease, Risk Factors, Breathing Techniques, Medical Compliance, Pulmonary A&P, Exacerbation Signs & Symptoms and Stress & Relaxation 90-day Reassessments:: Met Reassessment Notes & Comments:: Pt attends education. Exacerbation Mgmt & Airway Clearance Reassessment: Demonstrates knowledge of O2 Rx at rest and Demonstrates knowledge of O2 Rx with exercise Bronchial Hygiene Plan: Yes: Pt demonstrates correctly for effective cough, Yes: Pt demo correct for CPT, Yes: Pt demo correct for device, Yes: Pt demo correct for NS nasal spray, Yes: Pt demo correct for sputum management, Yes: Pt demo correct for improved hydration, Yes: Pt demo correct for hand hygiene, Yes: Pt demo correct for evalute sputum, Yes: Pt demo correct for verbalize when to call MD and Yes: Pt demo correct for cleaning of respiratory equipment Medication Medication list reviewed:: Yes Taking medications 100% of the time:: Met Medication reassessment: Yes: Pt demonstrates correct technique timing for MDI, Yes: Pt demonstrates correct technique timing for DPI, Yes: Pt demonstrates correct technique timing for NEB and Yes: Pt demonstrates correct technique timing for spacer Diabetes Diabetes:: No [employer] Comp[employer] - Final Visit Session Number:: 27 Hypertension Hypertension Diagnosis:: Hypertension ICD-10 I10 Resting Blood Pressure:: 118/80 [employer] Hypertension Guidelines Peak Exercise Blood Pressure:: 164/72 Outcomes/Goals: Able to verbalize/achieve optimal blood pressure <130/80 and Incorporates diet changes & exercise for blood pressure control by DC Tobacco - Final Tobacco Program Goals Do you have family support?: Yes Tobacco Use: Non-smoker Exacerbation Mgmt & Airway Clearance Bronchial Hygiene Plan: Yes: Pt demonstrates correctly for effective cough, Yes: Pt demo correct for CPT, Yes: Pt demo correct for device, Yes: Pt demo correct for NS nasal spray, Yes: Pt demo correct for sputum management, Yes: Pt demo correct for improved hydration, Yes: Pt demo correct for hand hygiene, Yes: Pt demo correct for evalute sputum, Yes: Pt demo correct for verbalize when to call MD and Yes: Pt demo correct for cleaning of respiratory equipment Medication Medication reassessment: Yes: Pt demonstrates correct technique timing for MDI, Yes: Pt demonstrates correct technique timing for DPI, Yes: Pt demonstrates correct technique timing for NEB and Yes: Pt demonstrates correct technique timing for spacer Diabetes Diabetes:: No Knowledge Questionaire (BCKQ) Information Information: [place] COPD Knowledge Questionnaire (BCKQ) This questionnaire is designed to find out what you know about your lung problem. It should be completed without help form anyone else. This usually takes between 10 and 20 minutes. Your answers will help us to find out what information you need to help you to understand and manage your lung condition. Brenden the rosebud which you think is the correct answer.
[2025-06-17 07:54] VITALS: BP 118/60
[2025-06-17 08:01] VITALS: BMI 23.6
[2025-06-17 08:30] VITALS: BP 118/80; BP 164/72; O2SAT 92
== END 2025-07-06 23:59 ==
LOC: PR 12:45
PROVIDERS: PCP Family Medicine
DX: J41.8 Mixed simple and mucopurulent chronic bronchitis (principal); J43.9 Emphysema, unspecified
CPT/HCPCS: 97150; 94626